=== PATIENT | male | born 1930 | race Caucasian/White ===

== ENCOUNTER 2017-04-23 10:23 | Inpatient (IN) | payer MEDICARE ==
[2017-04-23] MEDS ORDERED: methylPREDNISolone SOD SUCCI 125 MG/2 ML VIAL IV STA (10:28)
[2017-04-23] MEDS ORDERED: IPRATROPIUM-ALBUTEROL 3 ML NEB INHALATION STA ×2 (10:38→13:13)
--- NOTE | 2017-04-23 10:42 | ED ---
SOB HPI - General Stated Complaint: Chest Pain Time Seen by Provider: 04/23/17 10:23 Source: patient, EMS, RN notes reviewed Mode of arrival: EMS - History of Present Illness Initial Comments: This is a 86-year-old male who presents with complaints of shortness of breath or past 3 days he also has a cough of green phlegm he has had some intermittent fevers chills and sweats. EMS was called he was found have a respiratory rate of 20-30 breaths a minute 93% pulse ox on initial contact he did improve after oxygen. He also had EKG changes was suggested that an [place] per EMS. Patient does not have any chest pain however. He skin no prior history of heart disease. She has no other complaints at this time MD Complaint: shortness of breath, cough - Related Data Home Medications Medication Instructions Recorded Confirmed Aspirin 81 mg PO DAILY 04/23/17 04/23/17 Budesonide 0.5 mg IH RT-BID 04/23/17 04/23/17 Montelukast Sodium [Singulair] 10 mg PO HS 04/23/17 04/23/17 Vit C/E/Zn/Coppr/Lutein/Zeaxan 1 cap PO BID 04/23/17 04/23/17 [Preservision Areds 2 Softgel] Allergies Allergy/AdvReac Type Severity Reaction Status Date / Time No Known Allergies Allergy Unverified 04/23/17 11:23 Review of Systems ROS Statement: Those systems with pertinent positive or pertinent negative responses have been documented in the HPI. ROS Other: All systems not noted in ROS Statement are negative. General Exam - General Exam Comments Initial Comments: This is a well-developed well-nourished awake alert oriented times 3 male General appearance: alert, in no apparent distress Head exam: Present: atraumatic, normocephalic, normal inspection Eye exam: Present: normal appearance, PERRL, EOMI. Absent: scleral icterus, conjunctival injection, periorbital swelling ENT exam: Present: normal exam, mucous membranes moist Neck exam: Present: normal inspection. Absent: tenderness, meningismus, lymphadenopathy Respiratory exam: Present: respiratory distress, rhonchi, accessory muscle use, decreased breath sounds. Absent: wheezes, rales, stridor Cardiovascular Exam: Present: regular rate, normal rhythm, normal heart sounds. Absent: systolic murmur, diastolic murmur, rubs, gallop, clicks GI/Abdominal exam: Present: soft, normal bowel sounds. Absent: distended, tenderness, guarding, rebound, rigid Extremities exam: Present: normal inspection, full ROM, normal capillary refill. Absent: tenderness, pedal edema, joint swelling, calf tenderness Back exam: Present: normal inspection Neurological exam: Present: alert, oriented X3, CN II-XII intact Psychiatric exam: Present: normal affect, normal mood Skin exam: Present: warm, dry, intact, normal color. Absent: rash Course Vital Signs 04/23/17 04/23/17 04/23/17 10:43 10:45 10:48 Temperature 98.9 F Pulse Rate 81 98 Respiratory 18 20 Rate Blood Pressure 144/62 O2 Sat by Pulse 96 Oximetry 04/23/17 04/23/17 04/23/17 10:59 12:09 13:16 Temperature 98.5 F Pulse Rate 87 80 79 Respiratory 17 16 Rate Blood Pressure 116/61 O2 Sat by Pulse 98 Oximetry 04/23/17 04/23/17 13:24 15:02 Temperature Pulse Rate 79 83 Respiratory 16 18 Rate Blood Pressure 125/59 O2 Sat by Pulse 97 Oximetry - Reevaluation(s) Reevaluation #1: 04/23/17 15:10 Reevaluation patient reveals he still dyspneic. This is after treatment. Reevaluation #2: 04/23/17 15:10 CT chest was negative for evidence of PE does have evidence of pulmonary fibrosis infiltrate as not ruled out Medical Decision Making - Lab Data Result diagrams: 04/23/17 10:35 04/23/17 10:35 Lab Results 04/23/17 04/23/17 04/23/17 Range/Units 10:35 10:35 10:35 WBC 10.6 (3.8-10.6) k/uL RBC 3.99 L (4.30-5.90) m/uL Hgb 12.3 L (13.0-17.5) gm/dL Hct 37.6 L (39.0-53.0) % MCV 94.2 (80.0-100.0) fL MCH 30.8 (25.0-35.0) pg MCHC 32.7 (31.0-37.0) g/dL RDW 13.3 (11.5-15.5) % Plt Count 161 (150-450) k/uL Neutrophils % 69 % Lymphocytes % 21 % Monocytes % 7 % Eosinophils % 0 % Basophils % 0 % Neutrophils # 7.3 (1.3-7.7) k/uL Lymphocytes # 2.2 (1.0-4.8) k/uL Monocytes # 0.8 (0-1.0) k/uL Eosinophils # 0.0 (0-0.7) k/uL Basophils # 0.0 (0-0.2) k/uL PT (9.0-12.0) sec INR (<1.1) APTT (22.0-30.0) sec D-Dimer (<0.60) mg/L FEU Sodium 135 L (137-145) mmol/L Potassium 4.3 (3.5-5.1) mmol/L Chloride 101 (98-107) mmol/L Carbon Dioxide 26 (22-30) mmol/L Anion Gap 8 mmol/L BUN 27 H (9-20) mg/dL Creatinine 1.13 (0.66-1.25) mg/dL Est GFR (MDRD) Af Amer >60 (>60 ml/min/1.73 sqM) Est GFR (MDRD) Non-Af >60 (>60 ml/min/1.73 sqM) Glucose 92 (74-99) mg/dL Plasma Lactic Acid Ashvin (0.7-2.0) mmol/L Calcium 8.4 (8.4-10.2) mg/dL Magnesium 2.1 (1.6-2.3) mg/dL Total Bilirubin 1.5 H (0.2-1.3) mg/dL AST 15 L (17-59) U/L ALT 17 L (21-72) U/L Alkaline Phosphatase 118 (38-126) U/L Total Creatine Kinase 45 L (55-170) U/L CK-MB (CK-2) 0.5 (0.0-2.4) ng/mL CK-MB (CK-2) Rel Index 1.1 Troponin I 0.021 (0.000-0.034) ng/mL NT-Pro-B Natriuret Pep pg/mL Total Protein 6.2 L (6.3-8.2) g/dL Albumin 2.9 L (3.5-5.0) g/dL 04/23/17 04/23/17 04/23/17 Range/Units 10:35 10:35 10:35 WBC (3.8-10.6) k/uL RBC (4.30-5.90) m/uL Hgb (13.0-17.5) gm/dL Hct (39.0-53.0) % MCV (80.0-100.0) fL MCH (25.0-35.0) pg MCHC (31.0-37.0) g/dL RDW (11.5-15.5) % Plt Count (150-450) k/uL Neutrophils % % Lymphocytes % % Monocytes % % Eosinophils % % Basophils % % Neutrophils # (1.3-7.7) k/uL Lymphocytes # (1.0-4.8) k/uL Monocytes # (0-1.0) k/uL Eosinophils # (0-0.7) k/uL Basophils # (0-0.2) k/uL PT 13.4 H (9.0-12.0) sec INR 1.4 (<1.1) APTT 26.0 (22.0-30.0) sec D-Dimer 2.31 H (<0.60) mg/L FEU Sodium (137-145) mmol/L Potassium (3.5-5.1) mmol/L Chloride (98-107) mmol/L Carbon Dioxide (22-30) mmol/L Anion Gap mmol/L BUN (9-20) mg/dL Creatinine (0.66-1.25) mg/dL Est GFR (MDRD) Af Amer (>60 ml/min/1.73 sqM) Est GFR (MDRD) Non-Af (>60 ml/min/1.73 sqM) Glucose (74-99) mg/dL Plasma Lactic Acid Ashvin 1.3 (0.7-2.0) mmol/L Calcium (8.4-10.2) mg/dL Magnesium (1.6-2.3) mg/dL Total Bilirubin (0.2-1.3) mg/dL AST (17-59) U/L ALT (21-72) U/L Alkaline Phosphatase (38-126) U/L Total Creatine Kinase (55-170) U/L CK-MB (CK-2) (0.0-2.4) ng/mL CK-MB (CK-2) Rel Index Troponin I (0.000-0.034) ng/mL NT-Pro-B Natriuret Pep 2780 pg/mL Total Protein (6.3-8.2) g/dL Albumin (3.5-5.0) g/dL Critical Care Time Critical Care Time: Yes Critical Care Time: 33 minutes critical care time which includes initial monitoring EMS call and discussed with paramedics. History physical lab and x-rays multiple discussions with the patient family reevaluation the patient response to therapy. Discussion with the admitting physician orders documentation. Disposition Clinical Impression: Pulmonary fibrosis, Bronchospasm, Pneumonitis, Congestive heart failure Disposition: ADMITTED IP TO THIS [facility] Condition: Stable Referrals: Pabol Stephen MD [Primary Care Provider] - 1-2 days
[2017-04-23 11:08] LABS: ALT 17 U/L (21-72); AST 15 U/L (17-59); Alkaline Phosphatase 118 U/L (38-126); Anion Gap 8 mmol/L; Blood Urea Nitrogen 27 mg/dL (9-20); Calcium 8.4 mg/dL (8.4-10.2); Carbon Dioxide 26 mmol/L (22-30); Chloride 101 mmol/L (98-107); Glucose 92 mg/dL (74-99); Magnesium 2.1 mg/dL (1.6-2.3); Non-African American GFR(MDRD) >60 (>60 ml/min/1.73 sqM); Potassium 4.3 mmol/L (3.5-5.1); Sodium 135 mmol/L (137-145); Total Bilirubin 1.5 mg/dL (0.2-1.3); Total Protein 6.2 g/dL (6.3-8.2)
[2017-04-23 11:09] LABS: Basophils % (A) 0 %; CH 30.1; CHCM 32.2; Eosinophils % (A) 0 %; HCT 37.6 % (39.0-53.0); HDW 2.22; HGB 12.3 gm/dL (13.0-17.5); Luc # (Auto) 0.27; Luc % (Auto) 3; Lymphocytes # (A) 2.2 k/uL (1.0-4.8); Lymphocytes % (A) 21 %; MCH 30.8 pg (25.0-35.0); MCHC 32.7 g/dL (31.0-37.0); MCV 94.2 fL (80.0-100.0); Mean Platelet Volume 8.4; Monocytes # (A) 0.8 k/uL (0-1.0); Monocytes % (A) 7 %; Neutrophils # (A) 7.3 k/uL (1.3-7.7); Neutrophils % (A) 69 %; RBC 3.99 m/uL (4.30-5.90); RDW 13.3 % (11.5-15.5); WBC 10.6 k/uL (3.8-10.6); WBC (Perox) 9.62
[2017-04-23 11:16] LABS: INR 1.4 (<1.1); Prothrombin Time 13.4 sec (9.0-12.0)
[2017-04-23 11:29] LABS: Creatine Kinase MB 0.5 ng/mL (0.0-2.4); Troponin I 0.021 ng/mL (0.000-0.034)
--- NOTE | 2017-04-23 11:55 | XR ---
EXAMINATION TYPE: XR chest 2V DATE OF EXAM: 04/23/2017 11:22 AM COMPARISON: None HISTORY: 86-year-old male difficulty breathing, history of IPF and COPD TECHNIQUE: Frontal and lateral views FINDINGS: Heart is borderline enlarged. Leftward patient rotation alters the normal cardiomediastinal contours. Diffuse medium and coarse reticular opacities are seen throughout. Opacity is more confluent along t he peripheral right midlung. No priors available for comparison purposes. No obvious pleural effusion on the lateral view. IMPRESSION: 1. Extensive bilateral opacities appear predominantly coarse and interstitial interstitial. This like ly is in keeping with the patient's provided history of IPF. 2. However, opacity is more confluent at the peripheral right midlung and underlying infiltrate is no t excluded.
[2017-04-23] MEDS ORDERED: RX INFO: IV CONTRAST WAS GIVEN 1 EACH MISC MISCELLANE PRN (12:05)
--- NOTE | 2017-04-23 12:50 | CT ---
EXAMINATION TYPE: CT angio chest DATE OF EXAM: 04/23/2017 12:35 PM COMPARISON: Radiograph same day HISTORY: 86-year-old male with pain, evaluate for PE. TECHNIQUE: Contiguous axial scanning of the chest performed with IV Contrast, patient injected with 1 00 ml mL of Omnipaque 350. Coronal/sagittal MIP reconstructions performed. CT DLP: 188.90 mGycm Automated exposure control for dose reduction was used. FINDINGS: The heart is upper limits of normal in size without pericardial effusion. Coronary vessel calcificati ons are present and are a marker for coronary artery disease. Ascending aorta is ectatic at 3.7 cm with very direct takeoff of the left vertebral artery directly f rom the aortic arch There is enlargement of the main right and left pulmonary arteries at 2.8 cm each compatible with pul monary arterial hypertension. No evidence for pulmonary embolus. Enlarged 2.1 cm subcarinal lymph node. Additional enlarged right hilar lymph nodes measuring up to 1. 2 cm. There is coarse interstitial thickening with diffuse honeycombing, right greater than left with more confluent interstitial changes particularly along the posterior right midlung and right lower lobe. S ome additional more focal densities such as in the posterior left lower lobe axial image 89. Visualized upper abdomen shows no gross abnormality. Bones: Accentuated mid thoracic kyphosis. IMPRESSION: 1. PULMONARY ARTERIAL HYPERTENSION. NO EVIDENCE FOR PULMONARY EMBOLUS. 2. SEVERE DIFFUSE LUNG DISEASE COMPATIBLE WITH UNDERLYING IPF. CHANGES ARE ASYMMETRICALLY GREATER ON THE RIGHT WITH MORE CONFLUENT AREAS OF INTERSTITIAL CHANGE AND SOME MILDLY ENLARGED RIGHT HILAR LYMPH NODES. CLINICAL CORRELATION WILL BE NEEDED TO EXCLUDE ANY ACUTE SUPERIMPOSED INFECTIOUS INFILTRATES NO PRIORS ARE AVAILABLE FOR COMPARISON.
[2017-04-23] MEDS ORDERED: NITROGLYCERIN OINT 1 INCH/GM PACKET TOPICAL STA (15:29)
[2017-04-23] MEDS ORDERED: FUROSEMIDE 10 MG/ML 4 ML VIAL IV STA (15:30)
[2017-04-23] MEDS ORDERED: SODIUM CHLORIDE 0.9% 1,000 ML IV SCH (15:30)
[2017-04-23] MEDS: IPRATROPIUM-ALBUTEROL 3 ML NEB INHALATION SCH ×3 (16:19→19:55)
[2017-04-23] MEDS ORDERED: LEVOFLOXACIN 500 MG TAB PO SCH (18:00)
[2017-04-23] MEDS: methylPREDNISolone SOD SUCCI 125 MG/2 ML VIAL IV SCH ×2 (19:41→23:41)
[2017-04-23] MEDS ORDERED: IPRATROPIUM-ALBUTEROL 3 ML NEB INHALATION PRN (19:49)
[2017-04-23 21:01] LABS: Glucose,Whole Blood 125 mg/dL (75-99)
[2017-04-23] MEDS: MONTELUKAST 10 MG TAB PO SCH (23:41)
[2017-04-24 05:51] LABS: Glucose,Whole Blood 109 mg/dL (75-99)
[2017-04-24] MEDS: INSULIN LISPRO (humaLOG) 300 UNIT/3 ML VIAL SQ SCH ×4 (06:15→23:50)
[2017-04-24] MEDS: methylPREDNISolone SOD SUCCI 125 MG/2 ML VIAL IV SCH ×4 (08:32→23:50)
[2017-04-24] MEDS: VIT A,C & E-LUTEIN-MINERALS 1 EACH TAB PO SCH ×2 (08:33→21:52)
[2017-04-24] MEDS: ASPIRIN 81 MG CHEW PO SCH (08:33)
[2017-04-24] MEDS: BUDESONIDE 0.5 MG/2 ML NEBU INHALATION SCH ×2 (08:54→19:40)
[2017-04-24] MEDS: IPRATROPIUM-ALBUTEROL 3 ML NEB INHALATION SCH ×4 (08:54→19:40)
[2017-04-24 09:43] VITALS: BMI 18.5
--- NOTE | 2017-04-24 10:17 | P.CRDCN ---
<Julia Hugo E - Last Filed: 04/24/17 10:03> History of Present Illness Consult date: 04/24/17 Requesting physician: Betsey Diez Reason for Consult (text): Arrhythmia Chief complaint: Worsening shortness of breath and productive cough History of present illness: This is an 86-year-old gentleman with no prior documented history of hypertension, no diabetes, no hyperlipidemia, prior history of smoking, COPD, essential tremors, and pulmonary fibrosis. He presents to the hospital with symptoms of progressively worsening shortness of breath with associated persistent productive cough of green sputum. Patient states he felt very congested in his chest, and has been becoming more and more weak because of the persistent coughing. He also states that he has been experiencing chills at home but denies any overt fever. Blood pressure on arrival here 144/60 with a heart rate in the 90s, temperature 90.8 0.996% on 3 L of oxygen. Chest x-ray on admission revealed extensive bilateral open cities appearing predominantly coarse and interstitial. Likely in keeping with the patient's history of pulmonary fibrosis. There is an opaque sitting in the peripheral right midlung suggesting an infiltrate. CTA of the chest was performed which revealed pulmonary arterial hypertension with no evidence for pulmonary embolism. Severe diffuse lung disease compatible with pulmonary fibrosis, greater on the right with more confluent areas of interstitial change and some mildly enlarged right hilar lymph nodes. Possible infectious infiltrates. A blood cell count normal, hemoglobin 12.3, d-dimer 2.3, potassium 4.3, sodium 135, BUN 27 and creatinine 1.1. Magnesium 2.1, total bilirubin 1.5, AST 15, ALT 17, troponin 0.021. BNP level 2780. Patient was seen by Dr. Maldonado in the hospital in 2011 at which time a heart catheterization was performed which revealed normal coronary arteries. A etiology consultation was requested because of questionable arrhythmia on presentation here. EKG performed via EMS showed a normal sinus rhythm with an intraventricular block. EKG on arrival here shows normal sinus rhythm with nonspecific ST-T wave changes. No evidence of atrial fibrillation. At the time of my examination this morning, patient states his breathing is improving and he seems to be coughing less this morning. He was initiated on steroids in the emergency room, as well as antibiotics. We will discontinue the patient's Nitropaste as he denies having any chest discomfort. He was also given a one-time dose of IV Lasix in the emergency room. Past Medical History Past Medical History: COPD, GI Bleed, Hearing Disorder / Deafness, Osteoarthritis (OA) Additional Past Medical History / Comment(s): sinus, tremors, 1984-"bleeding ulcer,pulmonary fibrosis,home 02 2 liters n/c, mac degeneration, "heart skips a beat", shingle 2008 or 2009 History of Any Multi-Drug Resistant Organisms: None Reported Past Surgical History: Appendectomy, Orthopedic Surgery, Tonsillectomy Additional Past Surgical History / Comment(s): egd/colonosocpy, lt knee sx, gregg cataracts-lens implants Past Anesthesia/Blood Transfusion Reactions: No Reported Reaction Additional Past Anesthesia/Blood Transfusion Reaction / Comment(s): blood transfusion in past- no reaction Past Psychological History: No Psychological Hx Reported Additional Psychological History / Comment(s): pt denies any depression or any thoughts of wanting to harm self. pt and his recently moved to [facility].( has dementia). no pets. has home 02 /concentrator, nebulizer, walker. pt served in the [employer] in [employer]. 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 Smoking Status: Former smoker Past Alcohol Use History: Rare Additional Past Alcohol Use History / Comment(s): started smoking at age 14 smoked 3 ppd, quit 1969 Past Drug Use History: None Reported - Past Family History Father Family Medical History: Coronary Artery Disease (CAD) Additional Family Medical History / Comment(s): aaa Mother Family Medical History: Congestive Heart Failure (CHF) Sister(s) Additional Family Medical History / Comment(s): depression Daughter(s) Additional Family Medical History / Comment(s): committed suicide Medications and Allergies Home Medications Medication Instructions Recorded Confirmed Type Aspirin 81 mg PO DAILY 04/23/17 04/23/17 History Budesonide 0.5 mg IH RT-BID 04/23/17 04/23/17 History Montelukast Sodium [Singulair] 10 mg PO HS 04/23/17 04/23/17 History Vit C/E/Zn/Coppr/Lutein/Zeaxan 1 cap PO BID 04/23/17 04/23/17 History [Preservision Areds 2 Softgel] Allergies Allergy/AdvReac Type Severity Reaction Status Date / Time No Known Allergies Allergy Unverified 04/23/17 11:23 Physical Exam Vitals: Vital Signs Temp Pulse Pulse Resp BP BP Pulse Ox 04/24/17 09:11 88 04/24/17 09:03 86 04/24/17 09:02 86 04/24/17 08:54 82 100 04/24/17 08:00 82 18 110/61 98 04/24/17 04:00 81 18 118/57 95 04/24/17 00:00 68 18 112/61 97 04/23/17 20:00 73 19 110/60 98 04/23/17 19:55 74 14 04/23/17 19:45 74 16 94 L 04/23/17 17:34 96.7 F L 87 20 128/61 98 04/23/17 16:36 83 18 125/59 97 04/23/17 15:02 83 18 125/59 97 04/23/17 13:24 79 16 04/23/17 13:16 79 16 04/23/17 12:09 98.5 F 80 17 116/61 98 04/23/17 10:59 87 04/23/17 10:48 20 04/23/17 10:45 98.9 F 98 18 144/62 96 04/23/17 10:43 81 Intake and Output 04/23/17 04/24/17 04/24/17 22:59 06:59 14:59 Intake Total 240 240 120 Output Total 500 Balance -260 240 120 Intake: IV 240 Sodium Chloride 0.9% 1, 240 000 ml @ 20 mls/hr IV . Q24H [facility] Rx#:[id number] Oral 240 120 Output: Urine 500 Other: # Voids 1 Weight 62 kg 62 kg Patient Weight 04/25/17 06:59 Weight 62 kg PHYSICAL EXAMINATION: HEENT: [Head is atraumatic, normocephalic. Pupils equal, round. Neck is supple. There is no elevated jugular venous pressure.] HEART EXAMINATION: [Heart S1, S2 normal. No murmur or gallop heard.] CHEST EXAMINATION: Lungs reveal coarse fibrotic rales throughout. ABDOMEN: [ Soft, nontender. Bowel sounds are heard. No organomegaly noted]. EXTREMITIES:[ 2+ peripheral pulses with no evidence of peripheral edema and no calf tenderness noted]. NEUROLOGIC [patient is awake, alert and oriented -3.] . Results 04/23/17 10:35 04/23/17 10:35 Cardiac Enzymes 04/23/17 04/23/17 Range/Units 10:35 10:35 AST 15 L (17-59) U/L CK-MB (CK-2) 0.5 (0.0-2.4) ng/mL Troponin I 0.021 (0.000-0.034) ng/mL Coagulation 04/23/17 Range/Units 10:35 PT 13.4 H (9.0-12.0) sec APTT 26.0 (22.0-30.0) sec CBC 04/23/17 Range/Units 10:35 WBC 10.6 (3.8-10.6) k/uL RBC 3.99 L (4.30-5.90) m/uL Hgb 12.3 L (13.0-17.5) gm/dL Hct 37.6 L (39.0-53.0) % Plt Count 161 (150-450) k/uL Comprehensive Metabolic Panel 04/23/17 Range/Units 10:35 Sodium 135 L (137-145) mmol/L Potassium 4.3 (3.5-5.1) mmol/L Chloride 101 (98-107) mmol/L Carbon Dioxide 26 (22-30) mmol/L BUN 27 H (9-20) mg/dL Creatinine 1.13 (0.66-1.25) mg/dL Glucose 92 (74-99) mg/dL Calcium 8.4 (8.4-10.2) mg/dL AST 15 L (17-59) U/L ALT 17 L (21-72) U/L Alkaline Phosphatase 118 (38-126) U/L Total Protein 6.2 L (6.3-8.2) g/dL Albumin 2.9 L (3.5-5.0) g/dL Current Medications Generic Name Dose Route Start Last Admin Trade Name Freq PRN Reason Stop Dose Admin Albuterol/Ipratropium 3 ml 04/23/17 20:00 04/24/17 08:54 Duoneb 0.5 Mg-3 Mg/3 Ml Soln INHALATION 3 ml RT-QID [facility] Administration Albuterol/Ipratropium 3 ml 04/23/17 19:49 Duoneb 0.5 Mg-3 Mg/3 Ml Soln INHALATION RT-Q2H PRN Shortness Of Breath Or Wheezing Aspirin 81 mg 04/24/17 09:00 04/24/17 08:33 Aspirin PO 81 mg DAILY [facility] Administration Budesonide 0.5 mg 04/24/17 08:00 04/24/17 08:54 Pulmicort INHALATION 0.5 mg RT-BID [facility] Administration Sodium Chloride 1,000 mls @ 20 mls/hr 04/23/17 15:30 04/23/17 23:41 Saline 0.9% IV 20 mls/hr .Q24H [facility] Administration Insulin Human Lispro 0 unit 04/24/17 07:30 04/24/17 06:15 Humalog SQ Not Given ACHS [facility] Protocol Levofloxacin 500 mg 04/23/17 18:00 04/23/17 16:26 Levaquin PO 04/30/17 18:01 500 mg Q24H [facility] Administration Methylprednisolone Sodium Succinate 60 mg 04/23/17 18:00 04/24/17 08:32 Solu-Medrol IV 60 mg Q6HR [facility] Administration Miscellaneous Information 1 each 04/23/17 12:05 Rx Info: Iv Contrast Was Given MISCELLANE 04/25/17 12:05 DAILY PRN Per Protocol Montelukast Sodium 10 mg 04/23/17 21:00 04/23/17 23:41 Singulair PO 10 mg HS [facility] Administration Multivitamins/Minerals 1 each 04/24/17 09:00 04/24/17 08:33 Ivite PO 1 each BID [facility] Administration Intake and Output 04/23/17 04/24/17 04/24/17 22:59 06:59 14:59 Intake Total 240 240 120 Output Total 500 Balance -260 240 120 Intake: IV 240 Sodium Chloride 0.9% 1, 240 000 ml @ 20 mls/hr IV . Q24H [facility] Rx#:[id number] Oral 240 120 Output: Urine 500 Other: # Voids 1 Weight 62 kg 62 kg Patient Weight 04/25/17 06:59 Weight 62 kg 04/23/17 10:35 04/23/17 10:35 EKG Interpretations (text) EKG shows normal sinus rhythm with bundle branch block pattern and nonspecific ST-T wave changes. Assessment and Plan Plan: Assessment and plan #1 in terms of progressively worsening shortness of breath with associated productive cough of green sputum as well as chills. Suggestion of possible pneumonia. Patient is currently on IV steroids and antibiotics. #2 questionable arrhythmia, no evidence of atrial fibrillation, EKG shows normal sinus rhythm with a bundle branch block pattern and nonspecific ST-T wave changes #3 COPD #4 pulmonary fibrosis #5 cardiac risk factors negative for hypertension, no diabetes, no hyperlipidemia, patient used to smoke, he quit in 1969, he does have a family history of premature coronary artery disease in his brother. Plan Will obtain an echocardiogram with Doppler study to assess the patient's LV function. There is no evidence of any atrial fibrillation on the monitor. Continue other medications. Patient is stable from a cardiac perspective. DNP note has been reviewed, I agree with a documented findings and plan of care. Patient was seen and examined. <Hammad Coffman - Last Filed: 04/25/17 10:17> Physical Exam Vitals: Vital Signs Temp Pulse Pulse Resp BP Pulse Ox 04/25/17 09:00 128 H 04/25/17 08:47 130 H 95 04/25/17 08:00 96.2 F L 130 H 98/54 95 04/25/17 04:00 98.0 F 139 H 18 100/56 94 L 04/25/17 00:00 96.9 F L 130 H 20 97/62 97 04/24/17 20:00 97.0 F L 130 H 20 85/61 96 04/24/17 19:50 88 04/24/17 19:40 84 04/24/17 16:41 88 04/24/17 16:31 86 04/24/17 16:00 97.6 F 78 16 119/60 96 04/24/17 12:27 88 04/24/17 12:15 86 04/24/17 12:00 104 H 16 118/65 Intake and Output 04/24/17 04/25/17 04/25/17 22:59 06:59 14:59 Intake Total 127.14 437.208 163.717 Balance 127.14 437.208 163.717 Intake: IV 127.14 339 Diltiazem 125 mg In 22.5 60 Sodium Chloride 0.9% 100 ml @ 7.5 MG/HR 7.5 mls/hr IV .[id number] [facility] Rx#: [id number] Heparin Sodium,Porcine/ 44.64 119 D5w Pmx 25,000 unit In Dextrose/Water 1 500ml. bag @ 12 UNITS/KG/HR 14. 88 mls/hr IV .Q24H [facility] Rx #:[id number] Sodium Chloride 0.9% 1, 60 160 000 ml @ 20 mls/hr IV . Q24H [facility] Rx#:[id number] Intake, IV Titration 98.208 163.717 Amount Diltiazem 125 mg In 61.417 Sodium Chloride 0.9% 100 ml @ 10 MG/HR 10 mls/hr IV .[id number] [facility] Rx#: [id number] Heparin Sodium,Porcine/ 98.208 102.3 D5w Pmx 25,000 unit In Dextrose/Water 1 500ml. bag @ 12 UNITS/KG/HR 14. 88 mls/hr IV .Q24H [facility] Rx #:[id number] Oral 0 Other: Voiding Method Urinal Urinal # Voids 1 1 Weight 69.5 kg Results 04/25/17 07:36 04/25/17 07:36 Cardiac Enzymes 04/24/17 04/25/17 04/25/17 Range/Units 20:03 01:30 07:36 Troponin I <0.012 0.044 H* 0.099 H* (0.000-0.034) ng/mL Coagulation 04/24/17 04/25/17 Range/Units 20:03 01:30 PT 11.5 (9.0-12.0) sec APTT 24.7 29.0 (22.0-30.0) sec CBC 04/24/17 04/25/17 Range/Units 20:03 07:36 WBC 13.4 H 14.1 H (3.8-10.6) k/uL RBC 4.25 L 4.50 (4.30-5.90) m/uL Hgb 13.2 13.4 (13.0-17.5) gm/dL Hct 41.1 43.9 (39.0-53.0) % Plt Count 218 246 (150-450) k/uL Comprehensive Metabolic Panel 04/25/17 Range/Units 07:36 Sodium 133 L (137-145) mmol/L Potassium 3.8 (3.5-5.1) mmol/L Chloride 97 L (98-107) mmol/L Carbon Dioxide 25 (22-30) mmol/L BUN 41 H (9-20) mg/dL Creatinine 1.14 (0.66-1.25) mg/dL Glucose 115 H (74-99) mg/dL Calcium 8.7 (8.4-10.2) mg/dL Current Medications Generic Name Dose Route Start Last Admin Trade Name Freq PRN Reason Stop Dose Admin Albuterol/Ipratropium 3 ml 04/23/17 20:00 04/25/17 08:47 Duoneb 0.5 Mg-3 Mg/3 Ml Soln INHALATION 3 ml RT-QID [facility] Administration Albuterol/Ipratropium 3 ml 04/23/17 19:49 Duoneb 0.5 Mg-3 Mg/3 Ml Soln INHALATION RT-Q2H PRN Shortness Of Breath Or Wheezing Aspirin 81 mg 04/24/17 09:00 04/25/17 08:50 Aspirin PO 81 mg DAILY [facility] Administration Budesonide 0.5 mg 04/24/17 08:00 04/25/17 08:47 Pulmicort INHALATION 0.5 mg RT-BID [facility] Administration Guaifenesin 1,200 mg 04/24/17 21:00 04/25/17 08:51 Mucinex PO 1,200 mg Q12HR [facility] Administration Heparin Sodium (Porcine) 0 unit 04/24/17 19:48 Heparin IV PER PROTOCOL PRN Low PTT Protocol Azithromycin 500 mg/ Sodium 250 mls @ 125 mls/hr 04/24/17 16:15 04/24/17 17: 16 Chloride IVPB 125 mls/hr DAILY [facility] Administration Ceftriaxone Sodium 1,000 mg/ 50 mls @ 100 mls/hr 04/24/17 16:15 04/25/17 08: 54 Sodium Chloride IVPB 100 mls/hr Q24HR [facility] Administration Diltiazem HCl 125 mg/ Sodium 125 mls @ 10 mls/hr 04/24/17 20:00 04/25/17 08: 54 Chloride IV 10 mg/hr .[id number] [facility] 10 mls/hr 10 MG/HR Administration Heparin Sodium/Dextrose 25,000 500 mls @ 14.88 mls/hr 04/24/17 20:00 08:55 unit/ IV Solution IV 18 units/kg/hr .Q24H [facility] 22.32 mls/hr Protocol Titration 12 UNITS/KG/HR Insulin Human Lispro 0 unit 04/24/17 07:30 04/25/17 06:30 Humalog SQ Not Given ACHS [facility] Protocol Methylprednisolone Sodium Succinate 60 mg 04/24/17 13:00 04/25/17 06:30 Solu-Medrol IV 60 mg Q6HR [facility] Administration Miscellaneous Information 1 each 04/23/17 12:05 Rx Info: Iv Contrast Was Given MISCELLANE 04/25/17 12:05 DAILY PRN Per Protocol Montelukast Sodium 10 mg 04/23/17 21:00 04/24/17 21:52 Singulair PO 10 mg HS [facility] Administration Multivitamins/Minerals 1 each 04/24/17 09:00 04/25/17 08:51 Ivite PO 1 each BID [facility] Administration Pantoprazole Sodium 40 mg 04/25/17 07:30 04/25/17 06:30 Protonix PO 40 mg [id number] [facility] Administration Intake and Output 04/24/17 04/25/17 04/25/17 22:59 06:59 14:59 Intake Total 127.14 437.208 163.717 Balance 127.14 437.208 163.717 Intake: IV 127.14 339 Diltiazem 125 mg In 22.5 60 Sodium Chloride 0.9% 100 ml @ 7.5 MG/HR 7.5 mls/hr IV .[id number] [facility] Rx#: [id number] Heparin Sodium,Porcine/ 44.64 119 D5w Pmx 25,000 unit In Dextrose/Water 1 500ml. bag @ 12 UNITS/KG/HR 14. 88 mls/hr IV .Q24H [facility] Rx #:[id number] Sodium Chloride 0.9% 1, 60 160 000 ml @ 20 mls/hr IV . Q24H [facility] Rx#:[id number] Intake, IV Titration 98.208 163.717 Amount Diltiazem 125 mg In 61.417 Sodium Chloride 0.9% 100 ml @ 10 MG/HR 10 mls/hr IV .[id number] [facility] Rx#: [id number] Heparin Sodium,Porcine/ 98.208 102.3 D5w Pmx 25,000 unit In Dextrose/Water 1 500ml. bag @ 12 UNITS/KG/HR 14. 88 mls/hr IV .Q24H [facility] Rx #:[id number] Oral 0 Other: Voiding Method Urinal Urinal # Voids 1 1 Weight 69.5 kg 04/25/17 07:36 04/25/17 07:36
[2017-04-24 11:32] LABS: Glucose,Whole Blood 178 mg/dL (75-99)
[2017-04-24 11:45] LABS: Hemoglobin A1C 5.4 % (4.2-6.1)
--- NOTE | 2017-04-24 14:31 | P.CNPUL ---
History of Present Illness Consult date: 04/24/17 Reason for consult: dyspnea, cough, pulmonary fibrosis Chief complaint: Shortness of breath History of present illness: This is an 86 year old male who presented to the emergency department complaining of shortness of breath for the last 3-4 days. The patient states he was coughing up green phlegm at home and had chills. He denies fevers. He does follow with Dr. ABELINO Lockwood in the office. He states he has been us ing his nebulizer: Pulmicort BID, Albuterol QID. She also takes Singulair. The patient has a history of IPF. He is not sure if he has never taken medication for her IPF in the past. He has been on oxygen at home at 2 L nasal cannula at baseline. He is a former smoker he used to smoke 3 packs per day for 30 years. He states he quit in 1969. On admission the patient was found to have severe pulmonary fibrosis and possible acute pneumonia on computed tomography scan. Review of Systems All systems: negative Past Medical History Past Medical History: COPD, GI Bleed, Hearing Disorder / Deafness, Osteoarthritis (OA) Additional Past Medical History / Comment(s): sinus, tremors, 1984-"bleeding ulcer,pulmonary fibrosis,home 02 2 liters n/c, mac degeneration, "heart skips a beat", shingle 2008 or 2009 History of Any Multi-Drug Resistant Organisms: None Reported Past Surgical History: Appendectomy, Orthopedic Surgery, Tonsillectomy Additional Past Surgical History / Comment(s): egd/colonosocpy, lt knee sx, gregg cataracts-lens implants Past Anesthesia/Blood Transfusion Reactions: No Reported Reaction Additional Past Anesthesia/Blood Transfusion Reaction / Comment(s): blood transfusion in past- no reaction Past Psychological History: No Psychological Hx Reported Additional Psychological History / Comment(s): pt denies any depression or any thoughts of wanting to harm self. pt and his recently moved to [facility].( has dementia). no pets. has home 02 /concentrator, nebulizer, walker. pt served in the [email or web address] in [employer]. 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 Smoking Status: Former smoker Past Alcohol Use History: Rare Additional Past Alcohol Use History / Comment(s): started smoking at age 14 smoked 3 ppd, quit 1969 Past Drug Use History: None Reported - Past Family History Father Family Medical History: Coronary Artery Disease (CAD) Additional Family Medical History / Comment(s): aaa Mother Family Medical History: Congestive Heart Failure (CHF) Sister(s) Additional Family Medical History / Comment(s): depression Daughter(s) Additional Family Medical History / Comment(s): committed suicide Medications and Allergies Home Medications Medication Instructions Recorded Confirmed Type Aspirin 81 mg PO DAILY 04/23/17 04/23/17 History Budesonide 0.5 mg IH RT-BID 04/23/17 04/23/17 History Montelukast Sodium [Singulair] 10 mg PO HS 04/23/17 04/23/17 History Vit C/E/Zn/Coppr/Lutein/Zeaxan 1 cap PO BID 04/23/17 04/23/17 History [Preservision Areds 2 Softgel] Allergies Allergy/AdvReac Type Severity Reaction Status Date / Time No Known Allergies Allergy Unverified 04/23/17 11:23 Physical Exam Osteopathic Statement: *. No significant issues noted on an osteopathic structural exam other than those noted in the History and Physical/Consult. Vitals: Vital Signs Temp Pulse Pulse Resp BP BP Pulse Ox 04/24/17 12:27 88 04/24/17 12:15 86 04/24/17 09:11 88 04/24/17 09:03 86 04/24/17 09:02 86 04/24/17 08:54 82 100 04/24/17 08:00 82 18 110/61 98 04/24/17 04:00 81 18 118/57 95 04/24/17 00:00 68 18 112/61 97 04/23/17 20:00 73 19 110/60 98 04/23/17 19:55 74 14 04/23/17 19:45 74 16 94 L 04/23/17 17:34 96.7 F L 87 20 128/61 98 04/23/17 16:36 83 18 125/59 97 04/23/17 15:02 83 18 125/59 97 Intake and Output 04/23/17 04/24/17 04/24/17 22:59 06:59 14:59 Intake Total 240 240 360 Output Total 500 Balance -260 240 360 Intake: IV 240 Sodium Chloride 0.9% 1, 240 000 ml @ 20 mls/hr IV . Q24H [facility] Rx#:[id number] Oral 240 360 Output: Urine 500 Other: # Voids 1 Weight 62 kg 62 kg Patient Weight 04/25/17 06:59 Weight 62 kg Gen.: Patient is alert and oriented 3, no acute distress Cardiovascular: Regular rate and rhythm, S1/S2 Lungs: Scattered crackles bilaterally Abdomen: Soft nontender nondistended positive bowel sounds Extremities: No edema Results - Laboratory Findings CBC and BMP: 04/23/17 10:35 04/23/17 10:35 PT/INR, D-dimer PT 13.4 sec (9.0-12.0) H 04/23/17 10:35 INR 1.4 (<1.1) 04/23/17 10:35 D-Dimer 2.31 mg/L FEU (<0.60) H 04/23/17 10:35 Abnormal lab findings: Abnormal Labs 04/23/17 04/23/17 04/23/17 10:35 10:35 10:35 RBC 3.99 L Hgb 12.3 L Hct 37.6 L PT D-Dimer Sodium 135 L BUN 27 H POC Glucose (mg/dL) Total Bilirubin 1.5 H AST 15 L ALT 17 L Total Creatine Kinase 45 L Total Protein 6.2 L Albumin 2.9 L 04/23/17 04/23/17 04/24/17 10:35 21:00 05:49 RBC Hgb Hct PT 13.4 H D-Dimer 2.31 H Sodium BUN POC Glucose (mg/dL) 125 H 109 H Total Bilirubin AST ALT Total Creatine Kinase Total Protein Albumin 04/24/17 11:31 RBC Hgb Hct PT D-Dimer Sodium BUN POC Glucose (mg/dL) 178 H Total Bilirubin AST ALT Total Creatine Kinase Total Protein Albumin - Diagnostic Findings Chest x-ray: report reviewed, image reviewed CT scan - chest: report reviewed, image reviewed Assessment and Plan Plan: Acute on chronic hypoxic respiratory failure Acute exacerbation of COPD Idiopathic pulmonary fibrosis Community acquired pneumonia History of tobacco abuse Anemia Probable pulmonary hypertension Mild protein calorie malnutrition Pulmonary cachexia Enlarged hilar lymph nodes Essential tremors O2 to maintain saturation greater than or equal to 88% IV steroid taper Bronchodilators Pulmicort Check echocardiogram Sputum culture Patient follows with Dr. ABELINO Lockwood in the office Continue Singulair Start Mucinex Physical therapy GI and DVT prophylaxis Incentive spirometry and pulmonary hygiene Thank you for this consultation we will continue to follow along
--- NOTE | 2017-04-24 15:48 | P.HPIM ---
History of Present Illness H&P Date: 04/24/17 Chief Complaint: Shortness of breath wheezing weakness This is a pleasant 86-year-old old gentleman patient of Dr. Latrell Lockwood and Dr Stephen, he has underlying history of pulmonary fibrosis, hypertension, COPD, decreased hearing, and also arthritis, he has been having problems for several years now for the pulmonary fibrosis and was recently placed on oxygen by Dr Marley Lockwood, at 2 L nasal cannula. Patient now complains of worsening cough, weakness, purulent productive sputum of yellowish green sputum, no fever no chills, patient has chronic leg edema right side, no history of PE or DVT in the past. Patient denies any recent falls however weakness continues to progress, and also has lost approximately 16 pounds since May 2017. Patient also has diminished appetite. In the emergency room. A CAT scan of the chest that shows pulmonary arterial hypertension, interstitial thickening with diffuse honeycombing, right greater than left, more conclusive and interstitial change particularly along the left posterior right lung and right lower lobe, and focal densities in the posterior left lower lobe, enlarged lymph node up to 1.2 right side, 2.1 cm subcarinal lymph node, no evidence of pulmonary emboli Review of Systems Constitutional: Reports as per HPI, Reports anorexia, Reports daytime sleepiness , Reports lethargy, Reports weight loss, Denies chills, Denies chronic headaches , Denies chronic pain, Denies fatigue, Denies fever, Denies malaise, Denies night sweats, Denies poor appetite, Denies sweats, Denies weakness, Denies weight gain Ears, nose, mouth and throat: Reports as per HPI, Denies ant. neck pain, Denies bleeding gums, Denies dental pain, Denies dysphagia, Denies epistaxis, Denies headache, Denies hoarseness, Denies mouth pain, Denies nasal congestion, Denies nasal discharge, Denies neck fullness/pressure, Denies neck lump, Denies nose pain, Denies odynophagia, Denies post-nasal drip, Denies sinus pain, Denies sinus pressure, Denies swelling in mouth, Denies swelling in throat, Denies sore throat, Denies vertigo, Denies voice changes Cardiovascular: Reports as per HPI, Denies chest pain, Denies claudication, Denies decreased exercise tolerance, Denies dyspnea on exertion, Denies edema, Denies high blood pressure, Denies irregular heart beat, Denies leg edema, Denies lightheadedness, Denies orthopnea, Denies palpitations, Denies paroxysmal nocturnal dyspnea, Denies phlebitis, Denies rapid heart beat, Denies shortness of breath, Denies syncope Respiratory: Reports as per HPI, Reports cough with sputum, Reports dyspnea, Reports home oxygen, Reports wheezing, Denies congestion, Denies cough, Denies excessive sputum, Denies hemoptysis, Denies pain, Denies pain on inspiration, Denies pleurisy, Denies respiratory infections, Denies sleep apnea, Denies snoring Gastrointestinal: Reports as per HPI, Denies abdominal pain, Denies belching, Denies bloating, Denies BRBPR, Denies change in bowel habits, Denies coffee ground emesis, Denies constipation, Denies diarrhea, Denies dyspepsia, Denies early satiety, Denies excessive gas, Denies heartburn, Denies hematemesis, Denies hematochezia, Denies indigestion, Denies jaundice, Denies lactose intolerance, Denies loss of appetite, Denies melena, Denies nausea, Denies vomiting Genitourinary: Reports as per HPI, Denies decreased libido, Denies difficulties fathering child, Denies discharge, Denies dysuria, Denies erectile dysfunction, Denies flank pain, Denies genital pain, Denies genital sores, Denies hematuria, Denies impotence, Denies incontinence, Denies kidney stones, Denies nocturia, Denies polyuria, Denies testicular lump, Denies testicular pain, Denies urinary frequency, Denies urinary hesitancy, Denies urinary retention Musculoskeletal: Reports as per HPI, Reports gait dysfunction, Reports limitation of motion, Denies arm numbness/tingling, Denies atrophy, Denies fractures, Denies frequent falls, Denies hot joints, Denies leg numbness/ tingling, Denies loss of height, Denies low back pain, Denies morning stiffness , Denies muscle cramps, Denies muscle weakness, Denies myalgias, Denies neck pain, Denies neck stiffness, Denies prior amputations, Denies redness of joints , Denies shooting arm pain, Denies shooting leg pain Integumentary: Reports as per HPI, Denies acne, Denies boils, Denies brittle nails, Denies change in hair/nails, Denies color changes, Denies darkening of skin, Denies depigmentation, Denies dryness, Denies foot/leg ulcers, Denies growths, Denies hirsutism, Denies lesions, Denies onychomycosis, Denies pruritus , Denies rash, Denies sores, Denies striae, Denies unusual bruising, Denies wounds Neurological: Reports as per HPI, Denies aphasia, Denies ataxia, Denies balance difficulties, Denies burning pain, Denies change in mentation, Denies change in smell/taste, Denies change in speech, Denies confusion, Denies convulsions, Denies double vision, Denies gait dysfunction, Denies head injury, Denies headaches, Denies hearing difficulties, Denies lack of coordination, Denies loss of vision, Denies memory loss, Denies migraines, Denies motor disturbance, Denies numbness, Denies paralysis, Denies paresthesias, Denies seizures, Denies sensory deficit, Denies spasticity, Denies syncope, Denies tic, Denies tingling , Denies transient paralysis, Denies tremors, Denies vertigo, Denies weakness, Denies visual changes Psychiatric: Reports as per HPI, Denies anhedonia, Denies anxiety, Denies anxiety attacks, Denies change in appetite, Denies change in libido, Denies change in sleep habits, Denies confusion, Denies depression, Denies difficulty concentrating, Denies disorientation, Denies hallucinations, Denies hopelessness , Denies hypersomnia, Denies insomnia, Denies irritability, Denies memory loss, Denies mood swings, Denies paranoia, Denies sadness/tearfulness, Denies sleep disturbances, Denies suicidal ideation Endocrine: Reports as per HPI, Denies cold intolerance, Denies deepening of the voice, Denies excessive sweating, Denies excessive thirst, Denies fatigue, Denies flushing, Denies heat intolerance, Denies high blood sugars, Denies increase in ring/shoe/hat size, Denies low blood sugars, Denies nocturia, Denies palpitations, Denies polydipsia, Denies polyphagia, Denies polyuria, Denies proptosis, Denies recent glucocorticoid use, Denies thyroid mass, Denies weight change Past Medical History Past Medical History: COPD, GI Bleed, Hearing Disorder / Deafness, Osteoarthritis (OA) Additional Past Medical History / Comment(s): sinus, tremors, 1984-"bleeding ulcer,pulmonary fibrosis,home 02 2 liters n/c, mac degeneration, "heart skips a beat", shingle 2009 or 2009 History of Any Multi-Drug Resistant Organisms: None Reported Past Surgical History: Appendectomy, Orthopedic Surgery, Tonsillectomy Additional Past Surgical History / Comment(s): egd/colonosocpy, lt knee sx, gregg cataracts-lens implants Past Anesthesia/Blood Transfusion Reactions: No Reported Reaction Additional Past Anesthesia/Blood Transfusion Reaction / Comment(s): blood transfusion in past- no reaction Past Psychological History: No Psychological Hx Reported Additional Psychological History / Comment(s): pt denies any depression or any thoughts of wanting to harm self. pt and his recently moved to [facility].( has dementia). no pets. has home 02 /concentrator, nebulizer, walker. pt served in [employer] in [place]. 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 Smoking Status: Former smoker Past Alcohol Use History: Rare Additional Past Alcohol Use History / Comment(s): started smoking at age 14 smoked 3 ppd, quit 1969 Past Drug Use History: None Reported - Past Family History Father Family Medical History: Coronary Artery Disease (CAD) Additional Family Medical History / Comment(s): aaa Mother Family Medical History: Congestive Heart Failure (CHF) Sister(s) Additional Family Medical History / Comment(s): depression Daughter(s) Additional Family Medical History / Comment(s): committed suicide Medications and Allergies Home Medications Medication Instructions Recorded Confirmed Type Aspirin 81 mg PO DAILY 04/23/17 04/23/17 History Budesonide 0.5 mg IH RT-BID 04/23/17 04/23/17 History Montelukast Sodium [Singulair] 10 mg PO HS 04/23/17 04/23/17 History Vit C/E/Zn/Coppr/Lutein/Zeaxan 1 cap PO BID 04/23/17 04/23/17 History [Preservision Areds 2 Softgel] Allergies Allergy/AdvReac Type Severity Reaction Status Date / Time No Known Allergies Allergy Unverified 04/23/17 11:23 Physical Exam Vitals: Vital Signs Temp Pulse Pulse Resp BP BP Pulse Ox 04/24/17 09:11 88 04/24/17 09:03 86 04/24/17 09:02 86 04/24/17 08:54 82 100 04/24/17 08:00 82 18 110/61 98 04/24/17 04:00 81 18 118/57 95 04/24/17 00:00 68 18 112/61 97 04/23/17 20:00 73 19 110/60 98 04/23/17 19:55 74 14 04/23/17 19:45 74 16 94 L 04/23/17 17:34 96.7 F L 87 20 128/61 98 04/23/17 16:36 83 18 125/59 97 04/23/17 15:02 83 18 125/59 97 04/23/17 13:24 79 16 04/23/17 13:16 79 16 04/23/17 12:09 98.5 F 80 17 116/61 98 Intake and Output 04/23/17 04/24/17 04/24/17 22:59 06:59 14:59 Intake Total 240 240 120 Output Total 500 Balance -260 240 120 Intake: IV 240 Sodium Chloride 0.9% 1, 240 000 ml @ 20 mls/hr IV . Q24H [facility] Rx#:[id number] Oral 240 120 Output: Urine 500 Other: # Voids 1 Weight 62 kg 62 kg Patient Weight 04/25/17 06:59 Weight 62 kg - Constitutional General appearance: cooperative, no acute distress - EENT Eyes: anicteric sclerae, EOMI, dentition normal, normal appearance ENT: hearing grossly normal, NA/AT, normal oropharynx - Neck Neck: no lymphadenopathy, normal ROM, no other, no rigidity, no stridor, no thyromegaly - Respiratory Respiratory: bilateral: CTA, negative: diminished, dullness, rales, rhonchi, wheezing - Cardiovascular Rhythm: regular Heart sounds: normal: S1, S2 Abnormal Heart Sounds: no systolic murmur, no diastolic murmur, no rub, no S3 Gallop, no S4 Gallop, no click, no other - Gastrointestinal General gastrointestinal: soft - Integumentary Integumentary: normal, normal turgor - Neurologic Neurologic: CNII-XII intact - Musculoskeletal Musculoskeletal: gait normal, strength equal bilaterally - Psychiatric Psychiatric: A&O x's 3, appropriate affect, intact judgment & insight Results CBC & Chem 7: 04/23/17 10:35 04/23/17 10:35 Labs: Abnormal Lab Results - Last 24 Hours (Table) 04/23/17 04/23/17 04/24/17 Range/Units 10:35 21:00 05:49 POC Glucose (mg/dL) 125 H 109 H (75-99) mg/dL Total Creatine Kinase 45 L (55-170) U/L Laboratory Results WBC 10.6 k/uL (3.8-10.6) 04/23/17 10:35 RBC 3.99 m/uL (4.30-5.90) L 04/23/17 10:35 Hgb 12.3 gm/dL (13.0-17.5) L 04/23/17 10:35 Hct 37.6 % (39.0-53.0) L 04/23/17 10:35 MCV 94.2 fL (80.0-100.0) 04/23/17 10:35 MCH 30.8 pg (25.0-35.0) 04/23/17 10:35 MCHC 32.7 g/dL (31.0-37.0) 04/23/17 10:35 RDW 13.3 % (11.5-15.5) 04/23/17 10:35 Plt Count 161 k/uL (150-450) 04/23/17 10:35 Neutrophils % 69 % 04/23/17 10:35 Lymphocytes % 21 % 04/23/17 10:35 Monocytes % 7 % 04/23/17 10:35 Eosinophils % 0 % 04/23/17 10:35 Basophils % 0 % 04/23/17 10:35 Neutrophils # 7.3 k/uL (1.3-7.7) 04/23/17 10:35 Lymphocytes # 2.2 k/uL (1.0-4.8) 04/23/17 10:35 Monocytes # 0.8 k/uL (0-1.0) 04/23/17 10:35 Eosinophils # 0.0 k/uL (0-0.7) 04/23/17 10:35 Basophils # 0.0 k/uL (0-0.2) 04/23/17 10:35 PT 13.4 sec (9.0-12.0) H 04/23/17 10:35 INR 1.4 (<1.1) 04/23/17 10:35 APTT 26.0 sec (22.0-30.0) 04/23/17 10:35 D-Dimer 2.31 mg/L FEU (<0.60) H 04/23/17 10:35 Sodium 135 mmol/L (137-145) L 04/23/17 10:35 Potassium 4.3 mmol/L (3.5-5.1) 04/23/17 10:35 Chloride 101 mmol/L (98-107) 04/23/17 10:35 Carbon Dioxide 26 mmol/L (22-30) 04/23/17 10:35 Anion Gap 8 mmol/L 04/23/17 10:35 BUN 27 mg/dL (9-20) H 04/23/17 10:35 Creatinine 1.13 mg/dL (0.66-1.25) 04/23/17 10:35 Est GFR (MDRD) Af Amer >60 (>60 ml/min/1.73 sqM) 04/23/17 10:35 Est GFR (MDRD) Non-Af >60 (>60 ml/min/1.73 sqM) 04/23/17 10:35 Glucose 92 mg/dL (74-99) 04/23/17 10:35 POC Glucose (mg/dL) 178 mg/dL (75-99) H 04/24/17 11:31 POC Glu Isotope Hydrologist СВЕТЛАНА Luisa Lou 04/24/17 11:[address] Glu mg/dL 108 mg/dL 04/23/17 10:35 Hemoglobin A1c 5.4 % (4.2-6.1) 04/23/17 10:35 Plasma Lactic Acid Ashvin 1.3 mmol/L (0.7-2.0) 04/23/17 10:35 Calcium 8.4 mg/dL (8.4-10.2) 04/23/17 10:35 Magnesium 2.1 mg/dL (1.6-2.3) 04/23/17 10:35 Total Bilirubin 1.5 mg/dL (0.2-1.3) H 04/23/17 10:35 AST 15 U/L (17-59) L 04/23/17 10:35 ALT 17 U/L (21-72) L 04/23/17 10:35 Alkaline Phosphatase 118 U/L (38-126) 04/23/17 10:35 Total Creatine Kinase 45 U/L (55-170) L 04/23/17 10:35 CK-MB (CK-2) 0.5 ng/mL (0.0-2.4) 04/23/17 10:35 CK-MB (CK-2) Rel Index 1.1 04/23/17 10:35 Troponin I 0.021 ng/mL (0.000-0.034) 04/23/17 10:35 NT-Pro-B Natriuret Pep 2780 pg/mL 04/23/17 10:35 Total Protein 6.2 g/dL (6.3-8.2) L 04/23/17 10:35 Albumin 2.9 g/dL (3.5-5.0) L 04/23/17 10:35 Thrombosis Risk Factor Assmnt - DVT/VTE Prophylaxis DVT/VTE Prophylaxis: Pharmacologic Prophylaxis ordered - Choose All That Apply Each Factor Represents 1 point: Abnormal pulmonary function (COPD), Serious lung disease incl. pneumonia (< 1month) Each Risk Factor Represents 3 Points: Age 75 years or older Thrombosis Risk Factor Assessment Total Risk Factor Score: 5 Thrombosis Risk Factor Assessment Level: High Risk Assessment and Plan Plan: 1. acute on chronic hypoxemic resp failure with Pulmonary fibrosis exacerbation presenting with increasing dyspnea, bilateral pneumonia, weight loss and increasing discharge, patient currently is receiving IV antibiotics IV Rocephin and Zithromax, with sputum cultures to be done, pulmonary consults were made with Dr. tenderness. Lennon him from Dr. Gaona/Alonso Lockwood's office 2. COPD exacerbation patient currently is in albuterol Atrovent, Pulmicort neb solution 0.5 mg twice a day and Solu-Medrol 60 mg every 6 hours, Singulair 3. Anorexia with weight loss 16 pounds over the 5 months, malignancy cannot be ruled out, PSA will be obtained, CA 19-9. Patient might need Megace or Remeron we would observe this closely as the patient has significant pneumonic process is going on 4. Chronic lower extremity edema without any prior history of DVT PE 5. Protein calorie malnutrition patient will be given supplemental boost and protein supplementation 6. CK D stage II, monitor labs DVT prophylaxis on Lovenox GI prophylaxis on IV Protonix
[2017-04-24] MEDS ORDERED: AZITHROMYCIN 500 MG in SODIUM CHLORIDE 0.9% 250 ML IVPB SCH (16:15)
[2017-04-24 16:34] LABS: Glucose,Whole Blood 100 mg/dL (75-99)
[2017-04-24] MEDS ORDERED: DILTIAZEM 5 MG/ML 5 ML VIAL IVP STA (19:47)
[2017-04-24] MEDS ORDERED: HEPARIN SODIUM,PORCINE 5,000 UNIT/ML 1 ML VIAL IV ONE (19:48)
[2017-04-24] MEDS ORDERED: HEPARIN SODIUM,PORCINE 5,000 UNIT/ML 1 ML VIAL IV PRN (19:48)
[2017-04-24 20:31] LABS: Basophils % (A) 0 %; CH 29.9; CHCM 31.1; Eosinophils % (A) 0 %; HCT 41.1 % (39.0-53.0); HDW 2.21; HGB 13.2 gm/dL (13.0-17.5); Luc # (Auto) 0.26; Luc % (Auto) 2; Lymphocytes # (A) 1.1 k/uL (1.0-4.8); Lymphocytes % (A) 8 %; MCH 30.9 pg (25.0-35.0); MCV 96.6 fL (80.0-100.0); Mean Platelet Volume 7.6; Monocytes # (A) 0.8 k/uL (0-1.0); Monocytes % (A) 6 %; Neutrophils # (A) 11.2 k/uL (1.3-7.7); Neutrophils % (A) 84 %; RBC 4.25 m/uL (4.30-5.90); RDW 13.4 % (11.5-15.5); WBC 13.4 k/uL (3.8-10.6); WBC (Perox) 13.58
[2017-04-24 20:36] LABS: INR 1.2 (<1.1); Partial Thromboplastin Time 24.7 sec (22.0-30.0); Prothrombin Time 11.5 sec (9.0-12.0)
[2017-04-24] MEDS: DILTIAZEM 125 MG in SODIUM CHLORIDE 0.9% 100 ML IV SCH (20:37)
[2017-04-24 20:38] LABS: Glucose,Whole Blood 186 mg/dL (75-99)
[2017-04-24] MEDS: HEPARIN SODIUM,PORCINE/D5W PMX 25,000 UNIT in DEXTROSE/WATER 1 500ML.BAG IV SCH (20:49)
[2017-04-24] MEDS: guaiFENesin 600 MG TABLET.ER PO SCH (21:52)
[2017-04-24] MEDS: MONTELUKAST 10 MG TAB PO SCH (21:52)
[2017-04-25 03:58] VITALS: RESP 20
[2017-04-25 06:05] LABS: Glucose,Whole Blood 121 mg/dL (75-99)
[2017-04-25] MEDS: INSULIN LISPRO (humaLOG) 300 UNIT/3 ML VIAL SQ SCH ×4 (06:30→21:43)
[2017-04-25] MEDS: PANTOPRAZOLE 40 MG TABLET PO SCH (06:30)
[2017-04-25] MEDS: methylPREDNISolone SOD SUCCI 125 MG/2 ML VIAL IV SCH ×3 (06:30→17:54)
[2017-04-25 08:02] LABS: Basophils % (A) 0 %; CH 29.8; CHCM 30.7; Eosinophils % (A) 0 %; HCT 43.9 % (39.0-53.0); HDW 2.19; HGB 13.4 gm/dL (13.0-17.5); Hypochromasia Slight; Luc # (Auto) 0.21; Luc % (Auto) 2; Lymphocytes # (A) 1.4 k/uL (1.0-4.8); Lymphocytes % (A) 10 %; MCH 29.7 pg (25.0-35.0); MCHC 30.5 g/dL (31.0-37.0); MCV 97.4 fL (80.0-100.0); Mean Platelet Volume 7.7; Monocytes # (A) 0.6 k/uL (0-1.0); Monocytes % (A) 4 %; Neutrophils # (A) 11.9 k/uL (1.3-7.7); Neutrophils % (A) 85 %; RDW 13.3 % (11.5-15.5); WBC 14.1 k/uL (3.8-10.6); WBC (Perox) 13.68
[2017-04-25 08:14] LABS: Anion Gap 11 mmol/L; Blood Urea Nitrogen 41 mg/dL (9-20); Calcium 8.7 mg/dL (8.4-10.2); Carbon Dioxide 25 mmol/L (22-30); Chloride 97 mmol/L (98-107); Glucose 115 mg/dL (74-99); Non-African American GFR(MDRD) >60 (>60 ml/min/1.73 sqM); Potassium 3.8 mmol/L (3.5-5.1); Sodium 133 mmol/L (137-145)
[2017-04-25] MEDS: BUDESONIDE 0.5 MG/2 ML NEBU INHALATION SCH ×2 (08:47→20:34)
[2017-04-25] MEDS: IPRATROPIUM-ALBUTEROL 3 ML NEB INHALATION SCH ×4 (08:47→20:36)
[2017-04-25] MEDS: ASPIRIN 81 MG CHEW PO SCH (08:50)
[2017-04-25] MEDS: VIT A,C & E-LUTEIN-MINERALS 1 EACH TAB PO SCH ×2 (08:51→20:05)
[2017-04-25] MEDS: guaiFENesin 600 MG TABLET.ER PO SCH ×2 (08:51→20:05)
[2017-04-25] MEDS: DILTIAZEM 125 MG in SODIUM CHLORIDE 0.9% 100 ML IV SCH ×2 (08:54→20:49)
[2017-04-25] MEDS ORDERED: ENOXAPARIN 40 MG/0.4 ML SYRINGE SQ SCH (09:00)
[2017-04-25 12:05] LABS: Glucose,Whole Blood 131 mg/dL (75-99)
[2017-04-25] MEDS: AZITHROMYCIN 500 MG TAB PO SCH (12:44)
--- NOTE | 2017-04-25 15:02 | P.PN ---
Subjective This is an 86-year-old gentleman with no prior documented history of hypertension, no diabetes, no hyperlipidemia, prior history of smoking, COPD, essential tremors, and pulmonary fibrosis. He presents to the hospital with symptoms of progressively worsening shortness of breath with associated persistent productive cough of green sputum. Patient states he felt very congested in his chest, and has been becoming more and more weak because of the persistent coughing. He also states that he has been experiencing chills at home but denies any overt fever. Blood pressure on arrival here 144/60 with a heart rate in the 90s, temperature 90.8 0.996% on 3 L of oxygen. Chest x-ray on admission revealed extensive bilateral open cities appearing predominantly coarse and interstitial. Likely in keeping with the patient's history of pulmonary fibrosis. There is an opaque sitting in the peripheral right midlung suggesting an infiltrate. CTA of the chest was performed which revealed pulmonary arterial hypertension with no evidence for pulmonary embolism. Severe diffuse lung disease compatible with pulmonary fibrosis, greater on the right with more confluent areas of interstitial change and some mildly enlarged right hilar lymph nodes. Possible infectious infiltrates. A blood cell count normal, hemoglobin 12.3, d-dimer 2.3, potassium 4.3, sodium 135, BUN 27 and creatinine 1.1. Magnesium 2.1, total bilirubin 1.5, AST 15, ALT 17, troponin 0.021. BNP level 2780. Patient was seen by Dr. Maldonado in the hospital in 2011 at which time a heart catheterization was performed which revealed normal coronary arteries. Cardiology consultation was requested because of questionable arrhythmia on presentation here. EKG performed via EMS showed a normal sinus rhythm with an intraventricular block. EKG on arrival here shows normal sinus rhythm with nonspecific ST-T wave changes. No evidence of atrial fibrillation. At the time of my examination this morning, patient states his breathing is improving and he seems to be coughing less this morning. He was initiated on steroids in the emergency room, as well as antibiotics. We will discontinue the patient's Nitropaste as he denies having any chest discomfort. He was also given a one-time dose of IV Lasix in the emergency room. 04/25/2017 Dear with Doppler study was performed results of which are yet pending. Cardiology's perspective, we will review the echo, if normal we'll follow this patient with you now on an as-needed basis only, please don't hesitate to call Objective - Vital Signs Vital signs: Vital Signs Temp 96.2 F L 04/25/17 08:00 Pulse 120 H 04/25/17 12:08 Resp 20 04/25/17 04:00 BP 101/64 04/25/17 12:00 Pulse Ox 95 04/25/17 12:00 Intake & Output 04/24/17 04/25/17 04/25/17 18:59 06:59 18:59 Intake Total 360 564.348 860.717 Output Total 250 Balance 110 564.348 860.717 Weight 62 kg 69.5 kg Intake: IV 466.14 80 Diltiazem 125 mg In 82.5 80 Sodium Chloride 0.9% 100 ml @ 10 MG/HR 10 mls/hr IV .[id number] [facility] Rx#: [id number] Heparin Sodium,Porcine/ 163.64 D5w Pmx 25,000 unit In Dextrose/Water 1 500ml. bag @ 12 UNITS/KG/HR 14. 88 mls/hr IV .Q24H [facility] Rx #:[id number] Sodium Chloride 0.9% 1, 220 000 ml @ 20 mls/hr IV . Q24H [facility] Rx#:[id number] Intake, IV Titration 98.208 263.717 Amount Diltiazem 125 mg In 61.417 Sodium Chloride 0.9% 100 ml @ 10 MG/HR 10 mls/hr IV .[id number] [facility] Rx#: [id number] Heparin Sodium,Porcine/ 98.208 102.3 D5w Pmx 25,000 unit In Dextrose/Water 1 500ml. bag @ 12 UNITS/KG/HR 14. 88 mls/hr IV .Q24H [facility] Rx #:[id number] cefTRIAXone 1,000 mg In 100 Sodium Chloride 0.9% 50 ml @ 100 mls/hr IVPB Q24HR [facility] Rx#:[id number] Oral 360 517 Output: Urine 250 Other: Voiding Method Urinal # Voids 1 1 # Bowel Movements 1 - Exam PHYSICAL EXAMINATION: HEENT: [Head is atraumatic, normocephalic. Pupils equal, round. Neck is supple. There is no elevated jugular venous pressure.] HEART EXAMINATION: [Heart S1, S2 normal. No murmur or gallop heard.] CHEST EXAMINATION: Lungs reveal coarse fibrotic rales throughout. ABDOMEN: [ Soft, nontender. Bowel sounds are heard. No organomegaly noted]. EXTREMITIES:[ 2+ peripheral pulses with no evidence of peripheral edema and no calf tenderness noted]. NEUROLOGIC [patient is awake, alert and oriented -3.] - Labs CBC & Chem 7: 04/25/17 07:36 04/25/17 07:36 Labs: Abnormal Lab Results - Last 24 Hours (Table) 04/24/17 04/24/17 04/24/17 Range/Units 16:32 20:03 20:37 WBC 13.4 H (3.8-10.6) k/uL RBC 4.25 L (4.30-5.90) m/uL MCHC (31.0-37.0) g/dL Neutrophils # 11.2 H (1.3-7.7) k/uL Sodium (137-145) mmol/L Chloride (98-107) mmol/L BUN (9-20) mg/dL Glucose (74-99) mg/dL POC Glucose (mg/dL) 100 H 186 H (75-99) mg/dL Troponin I (0.000-0.034) ng/mL 04/25/17 04/25/17 04/25/17 Range/Units 01:30 06:05 07:36 WBC 14.1 H (3.8-10.6) k/uL RBC (4.30-5.90) m/uL MCHC 30.5 L (31.0-37.0) g/dL Neutrophils # 11.9 H (1.3-7.7) k/uL Sodium (137-145) mmol/L Chloride (98-107) mmol/L BUN (9-20) mg/dL Glucose (74-99) mg/dL POC Glucose (mg/dL) 121 H (75-99) mg/dL Troponin I 0.044 H* (0.000-0.034) ng/mL 04/25/17 04/25/17 04/25/17 Range/Units 07:36 07:36 12:02 WBC (3.8-10.6) k/uL RBC (4.30-5.90) m/uL MCHC (31.0-37.0) g/dL Neutrophils # (1.3-7.7) k/uL Sodium 133 L (137-145) mmol/L Chloride 97 L (98-107) mmol/L BUN 41 H (9-20) mg/dL Glucose 115 H (74-99) mg/dL POC Glucose (mg/dL) 131 H (75-99) mg/dL Troponin I 0.099 H* (0.000-0.034) ng/mL Microbiology - Last 24 Hours (Table) 04/23/17 10:35 Blood Culture - Preliminary Blood No Growth after 48 hours Assessment and Plan Plan: Assessment and plan #1 in terms of progressively worsening shortness of breath with associated productive cough of green sputum as well as chills. Suggestion of possible pneumonia. Patient is currently on IV steroids and antibiotics. #2 questionable arrhythmia, no evidence of atrial fibrillation, EKG shows normal sinus rhythm with a bundle branch block pattern and nonspecific ST-T wave changes #3 COPD #4 pulmonary fibrosis #5 cardiac risk factors negative for hypertension, no diabetes, no hyperlipidemia, patient used to smoke, he quit in 1969, he does have a family history of premature coronary artery disease in his brother. Plan We will review the patient's echocardiogram with Doppler study. If normal we' ll follow this patient with you now on an as-needed basis only, please don't hesitate to call with any questions. DNP note has been reviewed, I agree with a documented findings and plan of care. Patient was seen and examined.
--- NOTE | 2017-04-25 15:15 | PN ---
DATE OF SERVICE: HISTORY OF PRESENT ILLNESS: The patient is an 86-year-old male who came in with increased shortness of breath, cough, and a history of pulmonary fibrosis. He follows with Dr. Lockwood in the office. He does use oxygen at home. He had a chest x-ray and CAT scan done where he is being treated for community-acquired pneumonia. Patient ( ) at bedtime. He still has been having some problems with cough. He states he did have a productive cough last evening. Patient states his appetite has been poor. Breathing has been okay. He is on room air. He states that the oxygen makes his nose dried out. No chest pain. On physical examination, vital signs show a temperature of 96.2, heart rate 128, respiratory rate 18, blood pressure is 98/54, oxygen saturation on room air is 95%. LABS: WBCs 14.1, hemoglobin 13.4, hematocrit 43.9, platelets are 246, sodium 133, potassium 3.8, chloride 97, carbon dioxide 25, BUN 41, creatinine is 1.14. Glucose 115, calcium 8.7. Troponin is 0.099. Blood cultures with no growth. GENERAL: He is an 86-year-old male denying any chest pain at this time, appears comfortable. HEENT: Pupils are reactive. Mucous membranes slightly dry. Neck is supple. Trach is midline. LUNGS: Sounds are diminished throughout. CARDIOVASCULAR: S1 and S2 heard; regular. ABDOMEN: Soft. Bowel sounds heard. EXTREMITIES: No edema. NEUROLOGIC: He is awake, alert. IMPRESSION: 1. Idiopathic pulmonary fibrosis. 2. Community-acquired pneumonia. 3. Elevated troponins. 4. Anemia. 5. Mild protein calorie malnutrition. 6. Pulmonary cachexia. 7. Pulmonary hypertension. 8. Enlarged hilar lymph nodes. 9. Essential tremors. PLAN: Continue oxygen to keep stats 92% or better. Await sputum culture results. Continue with GI and DVT prophylaxis. Continue with pulmonary hygiene. Increase activity as tolerated. Medications have been reviewed. Continue with nebulizer treatments as ordered, antibiotics as ordered and IV steroids can look at starting to taper down IV steroids tomorrow. Will continue to follow patient closely with you and make further changes as necessary.
--- NOTE | 2017-04-25 15:27 | P.PN ---
Subjective This is a pleasant 86-year-old old gentleman patient of Dr. Latrell Lockwood and Dr Stephen, he has underlying history of pulmonary fibrosis, hypertension, COPD, decreased hearing, and also arthritis, he has been having problems for several years now for the pulmonary fibrosis and was recently placed on oxygen by Dr Marley Lockwood, at 2 L nasal cannula. Patient now complains of worsening cough, weakness, purulent productive sputum of yellowish green sputum, no fever no chills, patient has chronic leg edema right side, no history of PE or DVT in the past. Patient denies any recent falls however weakness continues to progress, and also has lost approximately 16 pounds since May 2017. Patient also has diminished appetite. In the emergency room. A CAT scan of the chest that shows pulmonary arterial hypertension, interstitial thickening with diffuse honeycombing, right greater than left, more conclusive and interstitial change particularly along the left posterior right lung and right lower lobe, and focal densities in the posterior left lower lobe, enlarged lymph node up to 1.2 right side, 2.1 cm subcarinal lymph node, no evidence of pulmonary emboli 04/25: Patient has been seen in consultation by cardiology. Echocardiogram has been ordered. Repeat troponins were 0.044 and 0.099. Patient went into atrial fibrillation last night and started on Cardizem drip. Patient instructed to avoid caffeine. Patient is also followed by Dr. Pascual from pulmonary medicine. Mucinex has been started. She is currently on Solu-Medrol 60 mg IV every 6 hours along with ceftriaxone and azithromycin, DuoNeb treatments and Pulmicort. Physical therapy consult is in place. Objective - Vital Signs Vital signs: Vital Signs Temp 96.2 F L 04/25/17 08:00 Pulse 128 H 04/25/17 09:00 Resp 20 04/25/17 04:00 BP 98/54 04/25/17 08:00 Pulse Ox 95 04/25/17 08:47 Intake & Output 04/24/17 04/25/17 04/25/17 18:59 06:59 18:59 Intake Total 360 564.348 500.717 Output Total 250 Balance 110 564.348 500.717 Weight 62 kg 69.5 kg Intake: IV 466.14 Diltiazem 125 mg In 82.5 Sodium Chloride 0.9% 100 ml @ 7.5 MG/HR 7.5 mls/hr IV .[id number] [facility] Rx#: [id number] Heparin Sodium,Porcine/ 163.64 D5w Pmx 25,000 unit In Dextrose/Water 1 500ml. bag @ 12 UNITS/KG/HR 14. 88 mls/hr IV .Q24H [facility] Rx #:[id number] Sodium Chloride 0.9% 1, 220 000 ml @ 20 mls/hr IV . Q24H [facility] Rx#:[id number] Intake, IV Titration 98.208 163.717 Amount Diltiazem 125 mg In 61.417 Sodium Chloride 0.9% 100 ml @ 10 MG/HR 10 mls/hr IV .[id number] [facility] Rx#: [id number] Heparin Sodium,Porcine/ 98.208 102.3 D5w Pmx 25,000 unit In Dextrose/Water 1 500ml. bag @ 12 UNITS/KG/HR 14. 88 mls/hr IV .Q24H [facility] Rx #:[id number] Oral 360 337 Output: Urine 250 Other: Voiding Method Urinal # Voids 1 1 # Bowel Movements 1 - Exam General appearance: cooperative, no acute distress - EENT Eyes: anicteric sclerae, EOMI, dentition normal, normal appearance ENT: hearing grossly normal, NA/AT, normal oropharynx - Neck Neck: no lymphadenopathy, normal ROM, no other, no rigidity, no stridor, no thyromegaly - Respiratory Respiratory: bilateral: CTA, negative: diminished, dullness, rales, rhonchi, wheezing - Cardiovascular Rhythm: irregular Heart sounds: normal: S1, S2 Abnormal Heart Sounds: no systolic murmur, no diastolic murmur, no rub, no S3 Gallop, no S4 Gallop, no click, no other - Gastrointestinal General gastrointestinal: soft - Integumentary Integumentary: normal, normal turgor - Neurologic Neurologic: CNII-XII intact - Musculoskeletal Musculoskeletal: gait normal, strength equal bilaterally - Psychiatric Psychiatric: A&O x's 3, appropriate affect, intact judgment & insight - Labs CBC & Chem 7: 04/25/17 07:36 04/25/17 07:36 Labs: Abnormal Lab Results - Last 24 Hours (Table) 04/24/17 04/24/17 04/24/17 Range/Units 11:31 16:32 20:03 WBC 13.4 H (3.8-10.6) k/uL RBC 4.25 L (4.30-5.90) m/uL MCHC (31.0-37.0) g/dL Neutrophils # 11.2 H (1.3-7.7) k/uL Sodium (137-145) mmol/L Chloride (98-107) mmol/L BUN (9-20) mg/dL Glucose (74-99) mg/dL POC Glucose (mg/dL) 178 H 100 H (75-99) mg/dL Troponin I (0.000-0.034) ng/mL 04/24/17 04/25/17 04/25/17 Range/Units 20:37 01:30 06:05 WBC (3.8-10.6) k/uL RBC (4.30-5.90) m/uL MCHC (31.0-37.0) g/dL Neutrophils # (1.3-7.7) k/uL Sodium (137-145) mmol/L Chloride (98-107) mmol/L BUN (9-20) mg/dL Glucose (74-99) mg/dL POC Glucose (mg/dL) 186 H 121 H (75-99) mg/dL Troponin I 0.044 H* (0.000-0.034) ng/mL 04/25/17 04/25/17 04/25/17 Range/Units 07:36 07:36 07:36 WBC 14.1 H (3.8-10.6) k/uL RBC (4.30-5.90) m/uL MCHC 30.5 L (31.0-37.0) g/dL Neutrophils # 11.9 H (1.3-7.7) k/uL Sodium 133 L (137-145) mmol/L Chloride 97 L (98-107) mmol/L BUN 41 H (9-20) mg/dL Glucose 115 H (74-99) mg/dL POC Glucose (mg/dL) (75-99) mg/dL Troponin I 0.099 H* (0.000-0.034) ng/mL Microbiology - Last 24 Hours (Table) 04/23/17 10:35 Blood Culture - Preliminary Blood No Growth after 24 hours Assessment and Plan Plan: 1. acute on chronic hypoxemic resp failure with Pulmonary fibrosis exacerbation presenting with increasing dyspnea, bilateral pneumonia, weight loss and increasing discharge, patient currently is receiving IV antibiotics IV Rocephin and Zithromax, with sputum cultures to be done, pulmonary consults were made with Dr. Pascual. 2. COPD exacerbation patient currently is in albuterol Atrovent, Pulmicort neb solution 0.5 mg twice a day and Solu-Medrol 60 mg every 6 hours, Singulair 3. Anorexia with weight loss 16 pounds over the 5 months, malignancy cannot be ruled out, PSA will be obtained, CA 19-9. Patient might need Megace or Remeron we would observe this closely as the patient has significant pneumonic process is going on 4. Chronic lower extremity edema without any prior history of DVT PE 5. Protein calorie malnutrition patient will be given supplemental boost and protein supplementation 6. CKD stage II, monitor labs 7. New onset of atrial fibrillation with rapid ventricular response. Patient is on Cardizem drip. Cardiology is following. DVT prophylaxis on Lovenox GI prophylaxis on IV Protonix Discharge plan: Either home with homecare or subacute rehab. Impression and plan of care have been directed as dictated by the signing physician. Natasha Suárez nurse practitioner acting as scribe for signing physician.
[2017-04-25 16:53] LABS: Glucose,Whole Blood 141 mg/dL (75-99)
[2017-04-25] MEDS: HEPARIN SODIUM,PORCINE/D5W PMX 25,000 UNIT in DEXTROSE/WATER 1 500ML.BAG IV SCH (20:04)
[2017-04-25] MEDS: MONTELUKAST 10 MG TAB PO SCH (20:05)
[2017-04-25 20:44] LABS: Glucose,Whole Blood 158 mg/dL (75-99)
[2017-04-26] MEDS: methylPREDNISolone SOD SUCCI 125 MG/2 ML VIAL IV SCH ×2 (00:39→06:49)
[2017-04-26 06:30] LABS: Basophils % (A) 0 %; CH 30.1; CHCM 32.1; Eosinophils % (A) 0 %; HCT 37.5 % (39.0-53.0); HDW 2.36; HGB 12.1 gm/dL (13.0-17.5); Luc # (Auto) 0.16; Luc % (Auto) 1; Lymphocytes # (A) 1.7 k/uL (1.0-4.8); Lymphocytes % (A) 14 %; MCH 30.4 pg (25.0-35.0); MCHC 32.2 g/dL (31.0-37.0); MCV 94.2 fL (80.0-100.0); Mean Platelet Volume 7.3; Monocytes # (A) 0.5 k/uL (0-1.0); Monocytes % (A) 4 %; Neutrophils # (A) 9.8 k/uL (1.3-7.7); Neutrophils % (A) 81 %; RBC 3.98 m/uL (4.30-5.90); RDW 13.4 % (11.5-15.5); WBC 12.2 k/uL (3.8-10.6)
[2017-04-26 06:31] LABS: Glucose,Whole Blood 133 mg/dL (75-99)
[2017-04-26] MEDS: PANTOPRAZOLE 40 MG TABLET PO SCH (06:48)
[2017-04-26] MEDS: INSULIN LISPRO (humaLOG) 300 UNIT/3 ML VIAL SQ SCH ×2 (06:49→14:53)
[2017-04-26] MEDS: DILTIAZEM 125 MG in SODIUM CHLORIDE 0.9% 100 ML IV SCH (07:42)
[2017-04-26] MEDS: VIT A,C & E-LUTEIN-MINERALS 1 EACH TAB PO SCH (07:43)
[2017-04-26] MEDS: ASPIRIN 81 MG CHEW PO SCH (07:43)
[2017-04-26] MEDS: AZITHROMYCIN 500 MG TAB PO SCH (07:43)
[2017-04-26] MEDS: guaiFENesin 600 MG TABLET.ER PO SCH (07:43)
[2017-04-26 08:16] VITALS: BP 109/63; TEMP 97.3
[2017-04-26] MEDS: IPRATROPIUM-ALBUTEROL 3 ML NEB INHALATION SCH ×2 (08:55→12:01)
[2017-04-26] MEDS: BUDESONIDE 0.5 MG/2 ML NEBU INHALATION SCH (08:55)
[2017-04-26] MEDS ORDERED: VERAPAMIL SR 180 MG TABLET.ER PO SCH (11:00)
[2017-04-26 11:38] LABS: Glucose,Whole Blood 129 mg/dL (75-99)
--- NOTE | 2017-04-26 12:13 | P.PN ---
Subjective This is an 86-year-old male being evaluated and examined today on the selective care unit. This patient came in with increasing shortness of breath, cough and history of pulmonary fibrosis. He sees Dr. Lockwood in the outpatient setting. Patient did have a chest x-ray and CAT scan and was being treated for community-acquired pneumonia. Patient states that his cough is significantly improved. Patient was initially using oxygen however in the last 24 hours has not required and has been maintaining his oxygen saturations above 92%. Patient states his breathing has significantly improved and he was like to be discharged. Objective - Vital Signs Vital signs: Vital Signs Temp 97.3 F L 04/26/17 08:00 Pulse 100 04/26/17 09:11 Resp 20 04/26/17 08:00 BP 109/63 04/26/17 08:00 Pulse Ox 96 04/26/17 08:00 Intake & Output 04/25/17 04/26/17 04/26/17 18:59 06:59 18:59 Intake Total 1024.025 871.523 348.833 Output Total 700 Balance 1024.025 171.523 348.833 Weight 68.4 kg Intake: IV 80 273.04 Diltiazem 125 mg In 80 110 Sodium Chloride 0.9% 100 ml @ 10 MG/HR 10 mls/hr IV .[id number] [facility] Rx#: [id number] Heparin Sodium,Porcine/ 163.04 D5w Pmx 25,000 unit In Dextrose/Water 1 500ml. bag @ 12 UNITS/KG/HR 14. 88 mls/hr IV .Q24H [facility] Rx #:[id number] Intake, IV Titration 427.025 498.483 108.833 Amount Diltiazem 125 mg In 61.417 119.167 108.833 Sodium Chloride 0.9% 100 ml @ 10 MG/HR 10 mls/hr IV .[id number] [facility] Rx#: [id number] Heparin Sodium,Porcine/ 265.608 379.316 D5w Pmx 25,000 unit In Dextrose/Water 1 500ml. bag @ 12 UNITS/KG/HR 14. 88 mls/hr IV .Q24H [facility] Rx #:[id number] cefTRIAXone 1,000 mg In 100 Sodium Chloride 0.9% 50 ml @ 100 mls/hr IVPB Q24HR [facility] Rx#:[id number] Oral 517 100 240 Output: Urine 700 Other: Voiding Method Urinal Urinal # Voids 1 - Exam GENERAL EXAM: Alert, active, comfortable in no apparent distress. HEAD: Normocephalic. EYES: Normal reaction of pupils, equal size. NOSE: Clear with pink turbinates. THROAT: No erythema or exudates. NECK: No masses, no JVD. CHEST: No chest wall deformity. LUNGS: Equal air entry with no crackles, wheeze, rhonchi or dullness. Bases diminished CVS: S1 and S2 normal with no audible mumurs, regular rhythm. ABDOMEN: No hepatosplenomegaly, normal bowel sounds, no guarding or rigidity. EXTREMITIES: No edema noted, pedal pulses palpable. SKIN: No rashes CENTRAL NERVOUS SYSTEM: No focal deficits, tone is normal in all 4 extremities. - Labs CBC & Chem 7: 04/26/17 05:45 04/25/17 07:36 Labs: Abnormal Lab Results - Last 24 Hours (Table) 04/25/17 04/25/17 04/26/17 Range/Units 16:50 20:42 01:15 WBC (3.8-10.6) k/uL RBC (4.30-5.90) m/uL Hgb (13.0-17.5) gm/dL Hct (39.0-53.0) % Neutrophils # (1.3-7.7) k/uL APTT 48.4 H (22.0-30.0) sec POC Glucose (mg/dL) 141 H 158 H (75-99) mg/dL Troponin I (0.000-0.034) ng/mL 04/26/17 04/26/17 04/26/17 Range/Units 05:45 05:45 05:45 WBC 12.2 H (3.8-10.6) k/uL RBC 3.98 L (4.30-5.90) m/uL Hgb 12.1 L (13.0-17.5) gm/dL Hct 37.5 L (39.0-53.0) % Neutrophils # 9.8 H (1.3-7.7) k/uL APTT 49.5 H (22.0-30.0) sec POC Glucose (mg/dL) (75-99) mg/dL Troponin I 0.055 H* (0.000-0.034) ng/mL 04/26/17 04/26/17 Range/Units 06:25 11:36 WBC (3.8-10.6) k/uL RBC (4.30-5.90) m/uL Hgb (13.0-17.5) gm/dL Hct (39.0-53.0) % Neutrophils # (1.3-7.7) k/uL APTT (22.0-30.0) sec POC Glucose (mg/dL) 133 H 129 H (75-99) mg/dL Troponin I (0.000-0.034) ng/mL Microbiology - Last 24 Hours (Table) 04/25/17 08:49 Gram Stain - Preliminary Sputum 04/23/17 10:35 Blood Culture - Preliminary Blood No Growth after 48 hours Assessment and Plan Plan: Assessment Idiopathic pulmonary fibrosis Community acquired pneumonia Elevated troponins Anemia Mild protein calorie malnutrition Pulmonary cachexia Pulmonary hypertension Enlarged hilar lymph nodes Essential tremors Plan Patient could be cleared for discharge from a pulmonary standpoint. Medications have been reviewed and will be continued. Continue with nebulizer treatments as ordered. Patient will need oral steroids and oral antibiotics in the outpatient setting of discharge. Given continue with pulmonary hygiene and supportive care. Increase activity as tolerated. We will continue to monitor labs/results and adjust treatment as necessary. I performed an examination of the patient and discussed their management with the nurse practitioner. I have reviewed the nurse practitioner's note and agree with the documented findings and plan of care. We covering for Dr. ABELINO Lockwood today.
--- NOTE | 2017-04-26 12:25 | P.DS ---
Providers Date of admission: 04/23/17 15:22 Expected date of discharge: 04/26/17 Attending physician: Betsey Diez Consults: 04/23/17 15:22 Consult Physician Routine Consulting Provider: Berto Lockwood Consult Reason/Comments: Pulmonary fibrosis Do you want consulting provider notified?: Yes 04/24/17 19:43 Consult Physician Urgent Consulting Provider: Hammad Coffman Consult Reason/Comments: new a fib Do you want consulting provider notified?: Yes Primary care physician: [place] Hospital Course: This is a pleasant 86-year-old old gentleman patient of Dr. Latrell Lockwood and Dr Stephen, he has underlying history of pulmonary fibrosis, hypertension, COPD, decreased hearing, and also arthritis, he has been having problems for several years now for the pulmonary fibrosis and was recently placed on oxygen by Dr Marley Lockwood, at 2 L nasal cannula. Patient now complains of worsening cough, weakness, purulent productive sputum of yellowish green sputum, no fever no chills, patient has chronic leg edema right side, no history of PE or DVT in the past. Patient denies any recent falls however weakness continues to progress, and also has lost approximately 16 pounds since May 2017. Patient also has diminished appetite. In the emergency room. A CAT scan of the chest that shows pulmonary arterial hypertension, interstitial thickening with diffuse honeycombing, right greater than left, more conclusive and interstitial change particularly along the left posterior right lung and right lower lobe, and focal densities in the posterior left lower lobe, enlarged lymph node up to 1.2 right side, 2.1 cm subcarinal lymph node, no evidence of pulmonary emboli 04/25: Patient has been seen in consultation by cardiology. Echocardiogram has been ordered. Repeat troponins were 0.044 and 0.099. Patient went into atrial fibrillation last night and started on Cardizem drip. Patient instructed to avoid caffeine. Patient is also followed by Dr. Pascual from pulmonary medicine. Mucinex has been started. She is currently on Solu-Medrol 60 mg IV every 6 hours along with ceftriaxone and azithromycin, DuoNeb treatments and Pulmicort. Physical therapy consult is in place. 04/26: Patient is currently in atrial fibrillation with controlled rate. Physical therapy has evaluated with recommendations for home with homecare. Echocardiogram has been obtained but report is pending. He is continued on heparin and Cardizem drips and cardiology has added and verapamil and eliquis. Patient is agreeable to pay co-pay on eliquis. Breathing status is much improved. Solu-Medrol will be switched to oral and patient will be discharged home today in stable condition. Patient has been cleared by cardiology and pulmonary medicine. Patient is anxious to be discharged. Discharge diagnoses: 1. acute on chronic hypoxemic resp failure with Pulmonary fibrosis exacerbation 2. COPD exacerbation 3. Anorexia and severe protein calorie malnutrition with weight loss 16 pounds over the 5 months 4. Chronic lower extremity edema without any prior history of DVT PE 5. Protein calorie malnutrition 6. CKD stage II 7. New onset of atrial fibrillation with rapid ventricular response with possible paroxysmal atrial fibrillation Discharge plan: home with homecare Impression and plan of care have been directed as dictated by the signing physician. Natasha Suárez nurse practitioner acting as scribe for signing physician. Patient Condition at Discharge: Good Plan - Discharge Summary New Discharge Prescriptions: Albuterol Nebulized [Ventolin Nebulized] 2.5 mg INHALATION Q6H #1 nebu Levofloxacin [Levaquin] 500 mg PO DAILY #5 tab Pantoprazole [Protonix] 40 mg PO AC-BRKFST #30 tab predniSONE 0 mg PO DIRECTED #60 tab Verapamil Sr [Isoptin Sr] 180 mg PO DAILY #30 tab Discharge Medication List Aspirin 81 mg PO DAILY 04/23/17 [History] Budesonide 0.5 mg IH RT-BID 04/23/17 [History] Montelukast Sodium [Singulair] 10 mg PO HS 04/23/17 [History] Vit C/E/Zn/Coppr/Lutein/Zeaxan [Preservision Areds 2 Softgel] 1 cap PO BID 04/23 [History] Albuterol Nebulized [Ventolin Nebulized] 2.5 mg INHALATION Q6H #1 nebu 04/26/17 [Rx] Levofloxacin [Levaquin] 500 mg PO DAILY #5 tab 04/26/17 [Rx] Pantoprazole [Protonix] 40 mg PO AC-BRKFST #30 tab 04/26/17 [Rx] Verapamil Sr [Isoptin Sr] 180 mg PO DAILY #30 tab 04/26/17 [Rx] guaiFENesin [Mucinex] 1,200 mg PO Q12HR #0 tab 04/26/17 [Rx] predniSONE 0 mg PO DIRECTED #60 tab 04/26/17 [Rx] Follow up Appointment(s)/Referral(s): [facility] [Provider Group] - 1 Week Pablo Stephen MD [Primary Care Provider] - 1 Week Berto Lockwood MD [STAFF PHYSICIAN] - 1 Week [facility], [NON-STAFF] - Patient Instructions/Handouts: Verapamil (By mouth), Apixaban (By mouth), Atrial Fibrillation (GEN) Activity/Diet/Wound Care/Special Instructions: *Ghanshyam script at [facility] - tow picker at time of discharge, free copay card applied* Discharge Disposition: HOME WITH HOME HEALTH SERVICES
--- NOTE | 2017-04-26 13:14 | P.PN ---
Subjective This is an 86-year-old gentleman with no prior documented history of hypertension, no diabetes, no hyperlipidemia, prior history of smoking, COPD, essential tremors, and pulmonary fibrosis. He presents to the hospital with symptoms of progressively worsening shortness of breath with associated persistent productive cough of green sputum. Patient states he felt very congested in his chest, and has been becoming more and more weak because of the persistent coughing. He also states that he has been experiencing chills at home but denies any overt fever. Blood pressure on arrival here 144/60 with a heart rate in the 90s, temperature 90.8 0.996% on 3 L of oxygen. Chest x-ray on admission revealed extensive bilateral open cities appearing predominantly coarse and interstitial. Likely in keeping with the patient's history of pulmonary fibrosis. There is an opaque sitting in the peripheral right midlung suggesting an infiltrate. CTA of the chest was performed which revealed pulmonary arterial hypertension with no evidence for pulmonary embolism. Severe diffuse lung disease compatible with pulmonary fibrosis, greater on the right with more confluent areas of interstitial change and some mildly enlarged right hilar lymph nodes. Possible infectious infiltrates. A blood cell count normal, hemoglobin 12.3, d-dimer 2.3, potassium 4.3, sodium 135, BUN 27 and creatinine 1.1. Magnesium 2.1, total bilirubin 1.5, AST 15, ALT 17, troponin 0.021. BNP level 2780. Patient was seen by Dr. Maldonado in the hospital in 2011 at which time a heart catheterization was performed which revealed normal coronary arteries. Cardiology consultation was requested because of questionable arrhythmia on presentation here. EKG performed via EMS showed a normal sinus rhythm with an intraventricular block. EKG on arrival here shows normal sinus rhythm with nonspecific ST-T wave changes. No evidence of atrial fibrillation. At the time of my examination this morning, patient states his breathing is improving and he seems to be coughing less this morning. He was initiated on steroids in the emergency room, as well as antibiotics. We will discontinue the patient's Nitropaste as he denies having any chest discomfort. He was also given a one-time dose of IV Lasix in the emergency room. 04/25/2017 Echo with Doppler study was performed results of which are yet pending. Cardiology's perspective, we will review the echo, if normal we'll follow this patient with you now on an as-needed basis only, please don't hesitate to call 04/26/2017. Last evening patient did go into atrial fibrillation with rapid ventricular response and was initiated on IV Cardizem drip along with heparin drip. He was started today on verapamil 120 mg daily, he will also be initiated on Eliquis 2- 1/2 mg one tablet by mouth twice a day and the heparin and Cardizem IV will be discontinued. Objective - Vital Signs Vital signs: Vital Signs Temp 97.3 F L 04/26/17 08:00 Pulse 84 04/26/17 12:19 Resp 20 04/26/17 08:00 BP 109/63 04/26/17 08:00 Pulse Ox 96 04/26/17 08:00 Intake & Output 04/25/17 04/26/17 04/26/17 18:59 06:59 18:59 Intake Total 1024.025 871.523 348.833 Output Total 700 Balance 1024.025 171.523 348.833 Weight 68.4 kg Intake: IV 80 273.04 Diltiazem 125 mg In 80 110 Sodium Chloride 0.9% 100 ml @ 10 MG/HR 10 mls/hr IV .[id number] [facility] Rx#: [id number] Heparin Sodium,Porcine/ 163.04 D5w Pmx 25,000 unit In Dextrose/Water 1 500ml. bag @ 12 UNITS/KG/HR 14. 88 mls/hr IV .Q24H [facility] Rx #:[id number] Intake, IV Titration 427.025 498.483 108.833 Amount Diltiazem 125 mg In 61.417 119.167 108.833 Sodium Chloride 0.9% 100 ml @ 10 MG/HR 10 mls/hr IV .[id number] [facility] Rx#: [id number] Heparin Sodium,Porcine/ 265.608 379.316 D5w Pmx 25,000 unit In Dextrose/Water 1 500ml. bag @ 12 UNITS/KG/HR 14. 88 mls/hr IV .Q24H [facility] Rx #:[id number] cefTRIAXone 1,000 mg In 100 Sodium Chloride 0.9% 50 ml @ 100 mls/hr IVPB Q24HR [facility] Rx#:[id number] Oral 517 100 240 Output: Urine 700 Other: Voiding Method Urinal Urinal # Voids 1 - Exam PHYSICAL EXAMINATION: HEENT: [Head is atraumatic, normocephalic. Pupils equal, round. Neck is supple. There is no elevated jugular venous pressure.] HEART EXAMINATION: [Heart S1, S2 irregularly irregular . No murmur or gallop heard.] CHEST EXAMINATION: Lungs reveal coarse fibrotic rales throughout. ABDOMEN: [ Soft, nontender. Bowel sounds are heard. No organomegaly noted]. EXTREMITIES:[ 2+ peripheral pulses with no evidence of peripheral edema and no calf tenderness noted]. NEUROLOGIC [patient is awake, alert and oriented -3.] - Labs CBC & Chem 7: 04/26/17 05:45 04/25/17 07:36 Labs: Abnormal Lab Results - Last 24 Hours (Table) 04/25/17 04/25/17 04/26/17 Range/Units 16:50 20:42 01:15 WBC (3.8-10.6) k/uL RBC (4.30-5.90) m/uL Hgb (13.0-17.5) gm/dL Hct (39.0-53.0) % Neutrophils # (1.3-7.7) k/uL APTT 48.4 H (22.0-30.0) sec POC Glucose (mg/dL) 141 H 158 H (75-99) mg/dL Troponin I (0.000-0.034) ng/mL 04/26/17 04/26/17 04/26/17 Range/Units 05:45 05:45 05:45 WBC 12.2 H (3.8-10.6) k/uL RBC 3.98 L (4.30-5.90) m/uL Hgb 12.1 L (13.0-17.5) gm/dL Hct 37.5 L (39.0-53.0) % Neutrophils # 9.8 H (1.3-7.7) k/uL APTT 49.5 H (22.0-30.0) sec POC Glucose (mg/dL) (75-99) mg/dL Troponin I 0.055 H* (0.000-0.034) ng/mL 04/26/17 04/26/17 Range/Units 06:25 11:36 WBC (3.8-10.6) k/uL RBC (4.30-5.90) m/uL Hgb (13.0-17.5) gm/dL Hct (39.0-53.0) % Neutrophils # (1.3-7.7) k/uL APTT (22.0-30.0) sec POC Glucose (mg/dL) 133 H 129 H (75-99) mg/dL Troponin I (0.000-0.034) ng/mL Microbiology - Last 24 Hours (Table) 04/23/17 10:35 Blood Culture - Preliminary Blood No Growth after 72 hours 04/25/17 08:49 Gram Stain - Preliminary Sputum Assessment and Plan Plan: Assessment and plan #1 Symptoms of progressively worsening shortness of breath with associated productive cough of green sputum as well as chills. Suggestion of possible pneumonia. Patient is currently on IV steroids and antibiotics. #2 questionable arrhythmia, no evidence of atrial fibrillation, EKG shows normal sinus rhythm with a bundle branch block pattern and nonspecific ST-T wave changes #3 COPD #4 pulmonary fibrosis #5 cardiac risk factors negative for hypertension, no diabetes, no hyperlipidemia, patient used to smoke, he quit in 1969, he does have a family history of premature coronary artery disease in his brother. #6 paroxysmal atrial fibrillation Plan We will discontinue the IV heparin and initiate Eliquis 2-1/2 mg one tablet by mouth twice a day. Discontinue IV Cardizem drip and start the patient on verapamil 120 mg daily. DNP note has been reviewed, I agree with a documented findings and plan of care. Patient was seen and examined.
[2017-04-26] MEDS ORDERED: APIXABAN 2.5 MG TABLET PO SCH (13:15)
[2017-04-26 15:03] VITALS: PULSE 107
[2017-04-26] MEDS ORDERED: methylPREDNISolone SOD SUCCI 40 MG/ML 1 ML VIAL IV SCH (16:00)
--- NOTE | 2017-04-26 16:11 | ECHOF ---
Referral Reason:shortness of breath MEASUREMENTS -------- HEIGHT: 182.9 cm WEIGHT: 61.7 kg BP: 118/57 LAESV Index (A-L): 21.05 ml/m IVSd: 1.0 cm (0.6 - 1.1) LVIDd: 5.2 cm (3.9 - 5.3) LVPWd: 1.0 cm (0.6 - 1.1) IVSs: 1.4 cm LVIDs: 3.9 cm LVPWs: 1.3 cm EDV(Teich): 129 ml ESV(Teich): 68 ml EF(Teich): 47 % %FS: 24 % SV(Teich): 61 ml Ao Diam: 4.2 cm (2.0 - 3.7) AV Cusp: 1.7 cm (1.5 - 2.6) MV EXCURSION: 15.271 mm (> 18.000) MV EF SLOPE: 75 mm/s (70 - 150) EPSS: 1.4 cm MV E Cam: 0.75 m/s MV DecT: 275 ms MV A Cam: 0.99 m/s MV E/A Ratio: 0.76 AR PHT: 801 ms RAP: 5.00 mmHg RVSP: 7.97 mmHg FINDINGS -------- Sinus rhythm. This was a technically difficult study with suboptimal views. Overall left ventricular systolic function is low-normal with, an EF between 50 - 55 %. The RV was not well visualized. Normal LA size by volume 22+/-6 ml/m2. The right atrium was not well visualized. Aortic valve is trileaflet and is mildly thickened. Trace amount of aortic regurgitation. There is no evidence of aortic stenosis. The mitral valve leaflets are mildly thickened. Mild mitral annular calcification present. There is trace to mild mitral regurgitation. Trace tricuspid regurgitation present. There is no evidence of pulmonary hypertension. The right ventricular systolic pressure, as measured by Doppler, is 7.97mmHg. The pulmonic valve was not well visualized. The aortic root size is normal. IVC Not well visulized. The pericardium is normal. There is no pericardial effusion. CONCLUSIONS -------- 1. Sinus rhythm. 2. Mild mitral annular calcification present. 3. There is trace to mild mitral regurgitation. 4. Trace tricuspid regurgitation present. 5. There is no evidence of pulmonary hypertension. 6. The right ventricular systolic pressure, as measured by Doppler, is 7.97mmHg. 7. The pulmonic valve was not well visualized. 8. The aortic root size is normal. 9. IVC Not well visulized. 10. There is no pericardial effusion. 11. This was a technically difficult study with suboptimal views. 12. Overall left ventricular systolic function is low-normal with, an EF between 50 - 55 %. 13. The RV was not well visualized. 14. Normal LA size by volume 22+/-6 ml/m2. 15. The right atrium was not well visualized. 16. Aortic valve is trileaflet and is mildly thickened. 17. Trace amount of aortic regurgitation. 18. The mitral valve leaflets are mildly thickened. [employer]AYER: Jesus Manuel Hardin RDCS
[2017-04-27] MEDS ORDERED: predniSONE 20 MG TAB PO SCH (09:00)
== END 2017-04-26 17:59 | disposition home health service (06) | DRG 190 ==
LOC: EC 10:23 → 6SEL 15:22
PROVIDERS: ADMIT Family Medicine; ATTEND Family Medicine
DX: J44.0 Chronic obstructive pulmonary disease with (acute) lower respiratory infection (principal); J96.21 Acute and chronic respiratory failure with hypoxia; E43 Unspecified severe protein-calorie malnutrition; J18.9 Pneumonia, unspecified organism; I27.2 Other secondary pulmonary hypertension; J84.112 Idiopathic pulmonary fibrosis; R64 Cachexia; I48.0 Paroxysmal atrial fibrillation; Z99.81 Dependence on supplemental oxygen; J44.1 Chronic obstructive pulmonary disease with (acute) exacerbation; I45.4 Nonspecific intraventricular block; D64.9 Anemia, unspecified; Z68.20 Body mass index [BMI] 20.0-20.9, adult; I12.9 Hypertensive chronic kidney disease with stage 1 through stage 4 chronic kidney disease, or unspecified chronic kidney disease; N18.2 Chronic kidney disease, stage 2 (mild); R59.9 Enlarged lymph nodes, unspecified; G25.0 Essential tremor; M19.91 Primary osteoarthritis, unspecified site; H91.90 Unspecified hearing loss, unspecified ear; Z98.42 Cataract extraction status, left eye; Z98.41 Cataract extraction status, right eye; Z96.1 Presence of intraocular lens; Z87.891 Personal history of nicotine dependence; Z79.82 Long term (current) use of aspirin; Z79.51 Long term (current) use of inhaled steroids; Z79.899 Other long term (current) drug therapy
CPT/HCPCS: 36415; 71020; 71275; 80048; 80053; 82550; 82553; 83036; 83605; 83735; 83880; 84484; 85025; 85379; 85610; 85730; 87040; 87070; 87205; 93005; 93306; 94640; 94760

== ENCOUNTER 2017-04-29 12:46 | Inpatient (IN) | payer MEDICARE ==
--- NOTE | 2017-04-29 13:09 | ED ---
General Adult HPI - General Stated complaint: diff breathing Time Seen by Provider: 04/29/17 12:50 Source: RN notes reviewed - History of Present Illness Initial comments: This is an 86-year-old male who presents emergency Department with shortness of breath. Patient states approximately one week ago he was diagnosed with pneumonia and was in the hospital. Patient states he went home on Saturday felt pretty good but as the week and went on he felt worse and worse. Patient states is more more short of breath. Patient denies any chest pain or pressure. Patient denies any abdominal pain. Patient denies nausea vomiting diarrhea. Patient denies any diaphoresis. Patient denies any lightheadedness or dizziness. Patient denies any headache or numbness or weakness. Patient states he's had no recent fevers. Patient does not notice any increased leg edema or calf pain. - Related Data Home Medications Medication Instructions Recorded Confirmed Aspirin 81 mg PO DAILY 04/23/17 04/29/17 Budesonide 0.5 mg INHALATION RT-BID 04/23/17 04/29/17 Montelukast Sodium [Singulair] 10 mg PO HS 04/23/17 04/29/17 Vit C/E/Zn/Coppr/Lutein/Zeaxan 1 cap PO BID 04/23/17 04/29/17 [Preservision Areds 2 Softgel] Albuterol Nebulized [Ventolin 2.5 mg INHALATION RT-Q6H 04/29/17 04/29/17 Nebulized] Previous Rx's Medication Instructions Recorded Apixaban [Eliquis] 2.5 mg PO BID #60 tab 04/26/17 Levofloxacin [Levaquin] 500 mg PO DAILY #5 tab 04/26/17 Pantoprazole [Protonix] 40 mg PO AC-BRKFST #30 tab 04/26/17 Verapamil Sr [Isoptin Sr] 180 mg PO DAILY #30 tab 04/26/17 guaiFENesin [Mucinex] 1,200 mg PO Q12HR #0 tab 04/26/17 predniSONE 0 mg PO DIRECTED #60 tab 04/26/17 Allergies Allergy/AdvReac Type Severity Reaction Status Date / Time No Known Allergies Allergy Verified 04/29/17 13:38 Review of Systems ROS Statement: Those systems with pertinent positive or pertinent negative responses have been documented in the HPI. ROS Other: All systems not noted in ROS Statement are negative. Past Medical History Past Medical History: COPD, GI Bleed, Hearing Disorder / Deafness, Osteoarthritis (OA) Additional Past Medical History / Comment(s): sinus, tremors, 1984-"bleeding ulcer,pulmonary fibrosis,home 02 2 liters n/c, mac degeneration, "heart skips a beat", shingle 2008 or 2009 History of Any Multi-Drug Resistant Organisms: None Reported Past Surgical History: Appendectomy, Orthopedic Surgery, Tonsillectomy Additional Past Surgical History / Comment(s): egd/colonosocpy, lt knee sx, gregg cataracts-lens implants Past Anesthesia/Blood Transfusion Reactions: No Reported Reaction Additional Past Anesthesia/Blood Transfusion Reaction / Comment(s): blood transfusion in past- no reaction Past Psychological History: No Psychological Hx Reported Additional Psychological History / Comment(s): pt denies any depression or any thoughts of wanting to harm self. pt and his recently moved to [facility].( has dementia). no pets. has home 02 /concentrator, nebulizer, walker. pt served in the [employer] in [employer]. 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 Smoking Status: Former smoker Past Alcohol Use History: Rare Additional Past Alcohol Use History / Comment(s): started smoking at age 14 smoked 3 ppd, quit 1970 Past Drug Use History: None Reported - Past Family History Father Family Medical History: Coronary Artery Disease (CAD) Additional Family Medical History / Comment(s): aaa Mother Family Medical History: Congestive Heart Failure (CHF) Sister(s) Additional Family Medical History / Comment(s): depression Daughter(s) Additional Family Medical History / Comment(s): committed suicide General Exam - General Exam Comments Initial Comments: GENERAL: Patient is well-developed and well-nourished. Patient is nontoxic and well- hydrated and is in mild distress. ENT: Neck is soft and supple. No significant lymphadenopathy is noted. Oropharynx is clear. Moist mucous membranes. Neck has full range of motion without eliciting any pain. EYES: The sclera were anicteric and conjunctiva were pink and moist. Extraocular movements were intact and pupils were equal round and reactive to light. Eyelids were unremarkable. PULMONARY: Patient has crackles bilateral bases CARDIOVASCULAR: Patient is tachycardic at about 160 beats a minute and he is a irregular ABDOMEN: Soft and nontender with normal bowel sounds. No palpable organomegaly was noted. There is no palpable pulsatile mass. SKIN: Skin is clear with no lesions or rashes and otherwise unremarkable. NEUROLOGIC: Patient is alert and oriented x3. Cranial nerves II through XII are grossly intact. Motor and sensory are also intact. Normal speech, volume and content. Symmetrical smile. MUSCULOSKELETAL: Normal extremities with adequate strength and full range of motion. Scant edema bilaterally LYMPHATICS: No significant lymphadenopathy is noted PSYCHIATRIC: Normal psychiatric evaluation. Normal interpersonal interactions appears functionally intact in deals appropriately with others. No signs of depression. No signs of anxiety. Course Vital Signs 04/29/17 04/29/17 04/29/17 13:08 13:19 13:41 Temperature 97.0 F L Pulse Rate 170 H 145 H Pulse Rate [ 165 H Machine Icer ] Respiratory 22 20 Rate Blood Pressure 94/60 100/58 O2 Sat by Pulse 96 97 Oximetry 04/29/17 04/29/17 04/29/17 13:57 14:24 14:58 Temperature 97.0 F L Pulse Rate 160 H 165 H 165 H Pulse Rate [ Machine Icer ] Respiratory 20 22 22 Rate Blood Pressure 100/60 94/60 107/79 O2 Sat by Pulse 96 96 96 Oximetry 04/29/17 15:31 Temperature Pulse Rate 132 H Pulse Rate [ Machine Icer ] Respiratory 20 Rate Blood Pressure 122/61 O2 Sat by Pulse 97 Oximetry Medical Decision Making - Medical Decision Making EKG shows atrial fibrillation with rapid ventricular response at 171 bpm QRS is 124 QT interval is 264 QTC is 445. Chest x-ray shows pulmonary edema pulmonary fibrosis and possible left lower lobe pneumonia I gave the patient Cardizem drip at 5 mg per hour that did not slow the patient' s heart rate psychiatric the patient 0.5 digoxin IV and then I followed that up with a 300 mg of amiodarone over 1 hour that seemed to decrease the patient's heart rate to the patient was feeling considerably better at this time. I also started the patient on Levaquin for the possible left lower lobe pneumonia. I spoke with Dr. Briseno he was in agreement with this. I spoke with Dr. Stephen he agreed to admit the patient admitted the patient I wrote admitting orders I consult to cardiology and they continued the Cardizem drip on the floor - Lab Data Result diagrams: 04/29/17 13:10 04/29/17 13:10 Lab Results 04/29/17 04/29/17 04/29/17 Range/Units 13:10 13:10 13:10 WBC 15.0 H (3.8-10.6) k/uL RBC 4.16 L (4.30-5.90) m/uL Hgb 12.5 L (13.0-17.5) gm/dL Hct 38.6 L (39.0-53.0) % MCV 92.9 (80.0-100.0) fL MCH 30.2 (25.0-35.0) pg MCHC 32.5 (31.0-37.0) g/dL RDW 13.6 (11.5-15.5) % Plt Count 316 (150-450) k/uL Neutrophils % (Manual) 79.5 % Lymphocytes % (Manual) 13.0 % Monocytes % (Manual) 3.0 % Metamyelocytes % 0.5 % Myelocytes % 4.0 % Neutrophils # (Manual) 11.9 H (1.3-7.7) k/uL Lymphocytes # (Manual) 2.0 (1.0-4.8) k/uL Monocytes # (Manual) 0.5 (0-1.0) k/uL Nucleated RBCs 0 (0-0) /100 WBC Manual Slide Review Performed PT (9.0-12.0) sec INR (<1.1) APTT (22.0-30.0) sec Sodium 135 L (137-145) mmol/L Potassium 4.5 (3.5-5.1) mmol/L Chloride 103 (98-107) mmol/L Carbon Dioxide 23 (22-30) mmol/L Anion Gap 9 mmol/L BUN 46 H (9-20) mg/dL Creatinine 1.16 (0.66-1.25) mg/dL Est GFR (MDRD) Af Amer >60 (>60 ml/min/1.73 sqM) Est GFR (MDRD) Non-Af 60 (>60 ml/min/1.73 sqM) Glucose 129 H (74-99) mg/dL Plasma Lactic Acid Ashvin (0.7-2.0) mmol/L Calcium 8.3 L (8.4-10.2) mg/dL Magnesium 2.4 H (1.6-2.3) mg/dL Total Bilirubin 1.0 (0.2-1.3) mg/dL AST 25 (17-59) U/L ALT 25 (21-72) U/L Alkaline Phosphatase 93 (38-126) U/L Total Creatine Kinase 73 (55-170) U/L CK-MB (CK-2) 2.0 (0.0-2.4) ng/mL CK-MB (CK-2) Rel Index 2.7 Troponin I 0.032 (0.000-0.034) ng/mL NT-Pro-B Natriuret Pep pg/mL Total Protein 6.0 L (6.3-8.2) g/dL Albumin 2.9 L (3.5-5.0) g/dL 04/29/17 04/29/17 04/29/17 Range/Units 13:10 13:10 14:50 WBC (3.8-10.6) k/uL RBC (4.30-5.90) m/uL Hgb (13.0-17.5) gm/dL Hct (39.0-53.0) % MCV (80.0-100.0) fL MCH (25.0-35.0) pg MCHC (31.0-37.0) g/dL RDW (11.5-15.5) % Plt Count (150-450) k/uL Neutrophils % (Manual) % Lymphocytes % (Manual) % Monocytes % (Manual) % Metamyelocytes % % Myelocytes % % Neutrophils # (Manual) (1.3-7.7) k/uL Lymphocytes # (Manual) (1.0-4.8) k/uL Monocytes # (Manual) (0-1.0) k/uL Nucleated RBCs (0-0) /100 WBC Manual Slide Review PT 13.7 H (9.0-12.0) sec INR 1.4 (<1.1) APTT 24.7 (22.0-30.0) sec Sodium (137-145) mmol/L Potassium (3.5-5.1) mmol/L Chloride (98-107) mmol/L Carbon Dioxide (22-30) mmol/L Anion Gap mmol/L BUN (9-20) mg/dL Creatinine (0.66-1.25) mg/dL Est GFR (MDRD) Af Amer (>60 ml/min/1.73 sqM) Est GFR (MDRD) Non-Af (>60 ml/min/1.73 sqM) Glucose (74-99) mg/dL Plasma Lactic Acid Ashvin 2.0 (0.7-2.0) mmol/L Calcium (8.4-10.2) mg/dL Magnesium (1.6-2.3) mg/dL Total Bilirubin (0.2-1.3) mg/dL AST (17-59) U/L ALT (21-72) U/L Alkaline Phosphatase (38-126) U/L Total Creatine Kinase (55-170) U/L CK-MB (CK-2) (0.0-2.4) ng/mL CK-MB (CK-2) Rel Index Troponin I (0.000-0.034) ng/mL NT-Pro-B Natriuret Pep 99766 pg/mL Total Protein (6.3-8.2) g/dL Albumin (3.5-5.0) g/dL Critical Care Time Critical Care Time: Yes Total Critical Care Time: 45 Disposition Clinical Impression: Atrial fibrillation with rapid ventricular response, Pulmonary edema, Pneumonia Disposition: ADMITTED IP TO THIS HOSP Referrals: Pablo Stephen MD [Primary Care Provider] - 1-2 days Time of Disposition: 15:47
[2017-04-29] MEDS ORDERED: DILTIAZEM 125 MG in SODIUM CHLORIDE 0.9% 100 ML IV ONE (13:15)
[2017-04-29 13:31] LABS: INR 1.4 (<1.1); Partial Thromboplastin Time 24.7 sec (22.0-30.0); Prothrombin Time 13.7 sec (9.0-12.0)
[2017-04-29 13:32] LABS: CH 29.9; CHCM 32.4; HCT 38.6 % (39.0-53.0); HDW 2.34; HGB 12.5 gm/dL (13.0-17.5); Immature Gran Flag Slight; MCH 30.2 pg (25.0-35.0); MCHC 32.5 g/dL (31.0-37.0); MCV 92.9 fL (80.0-100.0); Mean Platelet Volume 7.6; RBC 4.16 m/uL (4.30-5.90); RDW 13.6 % (11.5-15.5); WBC (Perox) 15.71
--- NOTE | 2017-04-29 13:33 | XR ---
EXAMINATION TYPE: XR chest 2V DATE OF EXAM: 04/29/2017 1:23 PM COMPARISON: 04/23/2017 HISTORY: Chest pain TECHNIQUE: Frontal and lateral views of the chest are obtained. FINDINGS: There is extensive interstitial and nodular infiltrates throughout the lungs. Pulmonary va sculature is difficult to evaluate because of the extensive lung disease. There is mild blunting cost ophrenic angles. Heart is enlarged. Thoracic aorta is atheromatous. There is osteopenia. IMPRESSION: Advanced pulmonary fibrotic changes. Heart failure cannot be excluded. There is probably increasing infiltrate in the left lung compared to last exam that suggests some degree of acute pneu monia.
[2017-04-29 13:34] LABS: ALT 25 U/L (21-72); AST 25 U/L (17-59); Alkaline Phosphatase 93 U/L (38-126); Anion Gap 9 mmol/L; Blood Urea Nitrogen 46 mg/dL (9-20); Calcium 8.3 mg/dL (8.4-10.2); Carbon Dioxide 23 mmol/L (22-30); Chloride 103 mmol/L (98-107); Glucose 129 mg/dL (74-99); Magnesium 2.4 mg/dL (1.6-2.3); Non-African American GFR(MDRD) 60 (>60 ml/min/1.73 sqM); Potassium 4.5 mmol/L (3.5-5.1); Sodium 135 mmol/L (137-145)
[2017-04-29 14:00] LABS: Troponin I 0.032 ng/mL (0.000-0.034)
[2017-04-29 14:16] LABS: Add Differential Manual Differential
[2017-04-29 14:20] LABS: Manual Review Performed; Metamyelocytes % 0.5 %; Nucleated Red Blood Cells 0 /100 WBC (0-0); Total Cells Counted 200
[2017-04-29] MEDS ORDERED: DIGOXIN 250 MCG/ML 2 ML AMP IVP STA (14:43)
[2017-04-29] MEDS ORDERED: DEXTROSE 5% IN WATER 250 ML with AMIODARONE 300 MG IV ONE (14:44)
[2017-04-29] MEDS ORDERED: LEVOFLOXACIN 750MG-D5W PMX 750 MG in DEXTROSE/WATER 1 150ML.BAG IVPB STA (15:32)
[2017-04-29] MEDS ORDERED: NITROGLYCERIN SL TABS 0.4 MG TAB SUBLINGUAL PRN (15:49)
[2017-04-29 19:35] LABS: Creatine Kinase MB 1.8 ng/mL (0.0-2.4); Troponin I 0.031 ng/mL (0.000-0.034)
[2017-04-29] MEDS: BUDESONIDE 0.5 MG/2 ML NEBU INHALATION SCH (19:46)
[2017-04-29] MEDS: ALBUTEROL NEBULIZED 2.5 MG/3 ML INHALATION SCH (19:56)
[2017-04-29] MEDS ORDERED: ALBUTEROL NEBULIZED 2.5 MG/3 ML INHALATION SCH (20:00)
[2017-04-29] MEDS: MONTELUKAST 10 MG TAB PO SCH (20:08)
[2017-04-29] MEDS: guaiFENesin 600 MG TABLET.ER PO SCH (20:08)
[2017-04-29] MEDS: APIXABAN 2.5 MG TABLET PO SCH (20:09)
[2017-04-30 01:16] LABS: Troponin I 0.027 ng/mL (0.000-0.034)
[2017-04-30 05:03] LABS: Cholesterol 136 mg/dL (<200); HDL Cholesterol 42 mg/dL (40-60); Triglycerides 94 mg/dL (<150)
[2017-04-30] MEDS: PANTOPRAZOLE 40 MG TABLET PO SCH (06:32)
[2017-04-30] MEDS: ALBUTEROL NEBULIZED 2.5 MG/3 ML INHALATION SCH ×4 (08:14→20:25)
[2017-04-30] MEDS: BUDESONIDE 0.5 MG/2 ML NEBU INHALATION SCH ×2 (08:14→20:25)
[2017-04-30] MEDS ORDERED: ASPIRIN 325 MG TAB PO SCH (09:00)
[2017-04-30] MEDS ORDERED: predniSONE 50 MG TAB PO ONE (09:00)
[2017-04-30] MEDS: guaiFENesin 600 MG TABLET.ER PO SCH ×2 (09:33→20:12)
[2017-04-30] MEDS: APIXABAN 2.5 MG TABLET PO SCH ×2 (09:34→20:11)
--- NOTE | 2017-04-30 09:58 | CONS ---
DATE OF CONSULTATION: 04/30/2017 CHIEF COMPLAINT: Cough and shortness of breath. Cardiology had been consulted because of atrial fibrillation with rapid ventricular rate. This is an 86-year-old gentleman with history of COPD, who was recently admitted to hospital with pneumonia. He comes back in complaining of shortness of breath and cough. He was found to be in atrial fibrillation with rapid ventricular rate for which cardiology had been consulted. He denies chest pain. The difficulty in breathing had improved since admission. On his initial presentation he was in A. fib with poorly controlled ventricular rate and was started on intravenous Cardizem with significant improvement in his heart rate. He is adequately anticoagulated with Eliquis 2.5 b.i.d. At the time of my evaluation, he appears comfortable at rest. He is on 3 liters of nasal O2, which he normally does at home. EKG shows A. fib with RVR. Cardiac enzymes have been negative. He had a CT scan of the chest on last admission that was negative for pulmonary embolism. He had an echocardiogram that showed normal LV systolic function without any evidence of pulmonary hypertension. PAST MEDICAL HISTORY: Significant for chronic atrial fibrillation, hypertension, COPD. Current medications include aspirin, Singulair, vitamin C, Ventolin, Eliquis, Levaquin, Protonix, Isoptin, Mucinex and prednisone. ALLERGIES: There are no known drug allergies. FAMILY HISTORY: Negative for premature coronary artery disease. SOCIAL HISTORY: Negative for current smoking, EtOH abuse or drug abuse. REVIEW OF SYSTEMS: HEENT: Unremarkable. CARDIAC: As described above. RESPIRATORY: As described above. GI: Negative. GENITOURINARY: Negative. ALLERGY/IMMUNOLOGY: Negative. MUSCULOSKELETAL: Significant for arthritis. PSYCHOSOCIAL: Negative. DERMATOLOGY: Negative. CONSTITUTIONAL: Negative. ONCOLOGICAL: Negative. The rest of the system review is not relevant. PAST SURGICAL HISTORY: Significant for left knee surgery, bilateral cataract surgery. On exam, heart rate is 88 beats per minute, blood pressure ( ), respiratory rate 20, O2 sat is 92% on 3 L. There is no jugular venous distention. Chest exam reveals occasional rhonchi with diminished air entry. Heart exam reveals first and second heart sounds. No gallop. Systolic murmur in the left lower sternal border. Abdomen is soft. Exam of the extremities did not reveal any edema. Peripheral pulses are palpable. Labs show a hemoglobin of 12.5, platelet count is 316. Creatinine is 1. Potassium is 4.5. Three sets of tropes are negative. BNP is 20,700. LDL cholesterol is 75. EKG shows A. fib with RVR with a heart rate of 170 beats per minute. ASSESSMENT: 1. Chronic atrial fibrillation with poorly controlled ventricular rate. 2. Pneumonia. 3. Hypertension. PLAN: I am going to start the patient on Tenormin 25 mg b.i.d. Once the heart rate is better controlled will stop the IV Cardizem. I reviewed information from recent admission including CT scan, echo, labs and EKGs.
[2017-04-30] MEDS ORDERED: ATENOLOL 25 MG TAB PO SCH (10:00)
[2017-04-30 11:50] VITALS: BMI 21.1
[2017-04-30] MEDS ORDERED: guaiFENesin-Coden 100-10MG/5ML 10 ML CUP PO PRN (11:51)
--- NOTE | 2017-04-30 11:53 | P.CNPUL ---
History of Present Illness Consult date: 04/30/17 Reason for consult: hypoxemia, pulmonary fibrosis Chief complaint: Shortness of breath, cough History of present illness: This is an 86-year-old male with known pulmonary fibrosis who was admitted through the emergency department for cough and shortness of breath. The patient was recently admitted and discharged for similar complaints. The patient states he was feeling good the day of discharged however his breathing began to worsen over the next 24-48 hours. The patient states he was up coughing all night and hasn't been able to sleep in days. He is unable to expectorate his sputum. The patient was diagnosed with pulmonary fibrosis 2 years ago. He has not been treated for this. He does have breathing treatments at home. He also complains of difficulty with swallowing. He denies fevers at home. He did have chills. The patient has had poor appetite as of late. Review of Systems All systems: negative Past Medical History Past Medical History: COPD, GI Bleed, Hearing Disorder / Deafness, Osteoarthritis (OA) Additional Past Medical History / Comment(s): sinus, tremors, 1984-"bleeding ulcer,pulmonary fibrosis,home 02 2 liters n/c, mac degeneration, "heart skips a beat", shingle 2008 or 2009 History of Any Multi-Drug Resistant Organisms: None Reported Past Surgical History: Appendectomy, Orthopedic Surgery, Tonsillectomy Additional Past Surgical History / Comment(s): egd/colonosocpy, lt knee sx, gregg cataracts-lens implants Past Anesthesia/Blood Transfusion Reactions: No Reported Reaction Additional Past Anesthesia/Blood Transfusion Reaction / Comment(s): blood transfusion in past- no reaction Past Psychological History: No Psychological Hx Reported Additional Psychological History / Comment(s): pt denies any depression or any thoughts of wanting to harm self. pt and his recently moved to [facility].( has dementia). no pets. has home 02 /concentrator, nebulizer, walker. pt served in the [employer] in [employer]. 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 Smoking Status: Former smoker Past Alcohol Use History: Rare Additional Past Alcohol Use History / Comment(s): started smoking at age 14 smoked 3 ppd, quit 1969 Past Drug Use History: None Reported - Past Family History Father Family Medical History: Coronary Artery Disease (CAD) Additional Family Medical History / Comment(s): aaa Mother Family Medical History: Congestive Heart Failure (CHF) Sister(s) Additional Family Medical History / Comment(s): depression Daughter(s) Additional Family Medical History / Comment(s): committed suicide Medications and Allergies Home Medications Medication Instructions Recorded Confirmed Type Aspirin 81 mg PO DAILY 04/23/17 04/29/17 History Budesonide 0.5 mg INHALATION RT-BID 04/23/17 04/29/17 History Montelukast Sodium [Singulair] 10 mg PO HS 04/23/17 04/29/17 History Vit C/E/Zn/Coppr/Lutein/Zeaxan 1 cap PO BID 04/23/17 04/29/17 History [Preservision Areds 2 Softgel] Albuterol Nebulized [Ventolin 2.5 mg INHALATION RT-Q6H 04/29/17 04/29/17 History Nebulized] Allergies Allergy/AdvReac Type Severity Reaction Status Date / Time No Known Allergies Allergy Verified 04/29/17 13:38 Physical Exam Osteopathic Statement: *. No significant issues noted on an osteopathic structural exam other than those noted in the History and Physical/Consult. Vitals: Vital Signs Temp Pulse Pulse Pulse Resp BP BP 04/30/17 11:37 88 04/30/17 08:31 88 04/30/17 08:14 88 04/30/17 07:49 96.9 F L 104 H 20 112/56 04/30/17 03:44 80 14 04/30/17 03:43 80 14 108/61 04/30/17 00:00 87 16 04/29/17 23:40 87 16 109/55 04/29/17 20:03 89 04/29/17 19:50 89 04/29/17 19:30 69 16 04/29/17 19:22 96.7 F L 69 18 111/59 04/29/17 16:19 97.0 F L 103 H 20 115/58 04/29/17 15:31 132 H 20 122/61 04/29/17 14:58 165 H 22 107/79 04/29/17 14:24 97.0 F L 165 H 22 94/60 04/29/17 13:57 160 H 20 100/60 04/29/17 13:41 145 H 20 100/58 04/29/17 13:19 165 H 04/29/17 13:08 97.0 F L 170 H 22 94/60 Pulse Ox 04/30/17 11:37 04/30/17 08:31 04/30/17 08:14 04/30/17 07:49 92 L 04/30/17 03:44 04/30/17 03:43 93 L 04/30/17 00:00 04/29/17 23:40 95 04/29/17 20:03 04/29/17 19:50 95 04/29/17 19:30 04/29/17 19:22 100 04/29/17 16:19 96 04/29/17 15:31 97 04/29/17 14:58 96 04/29/17 14:24 96 04/29/17 13:57 96 04/29/17 13:41 97 04/29/17 13:19 04/29/17 13:08 96 Intake and Output 04/29/17 04/30/17 04/30/17 22:59 06:59 14:59 Intake Total 240 945 120 Output Total 400 725 Balance -160 220 120 Intake: IV 900 0.9 NS 900 Intake, IV Titration 45 Amount Diltiazem 125 mg In 45 Sodium Chloride 0.9% 100 ml @ 5 MG/HR 5 mls/hr IV .Q24H ONE Rx#:[id number] Oral 240 120 Output: Urine 400 725 Other: # Voids 1 # Bowel Movements 0 Weight 68.039 kg 70.6 kg Gen.: Patient is alert and oriented 3, no acute distress Cardiovascular: Regular rate and rhythm, S1/S2 Lungs: Coarse breath sounds bilaterally Abdomen: Soft nontender nondistended positive bowel sounds Extremities: Right greater than left lower extremity edema Results - Laboratory Findings CBC and BMP: 04/29/17 13:10 04/29/17 13:10 PT/INR, D-dimer PT 13.7 sec (9.0-12.0) H 04/29/17 13:10 INR 1.4 (<1.1) 04/29/17 13:10 Abnormal lab findings: Abnormal Labs 04/29/17 04/29/17 04/29/17 13:10 13:10 13:10 WBC 15.0 H RBC 4.16 L Hgb 12.5 L Hct 38.6 L Neutrophils # (Manual) 11.9 H PT 13.7 H Sodium 135 L BUN 46 H Glucose 129 H Calcium 8.3 L Magnesium 2.4 H Total Creatine Kinase Total Protein 6.0 L Albumin 2.9 L 04/30/17 00:25 WBC RBC Hgb Hct Neutrophils # (Manual) PT Sodium BUN Glucose Calcium Magnesium Total Creatine Kinase 49 L Total Protein Albumin - Diagnostic Findings Chest x-ray: report reviewed, image reviewed Assessment and Plan Plan: Acute on chronic hypoxic respiratory failure Left basilar pneumonia Severe IPF Leukocytosis, SIRS, sepsis Acute exacerbation of COPD Atrial fibrillation with RVR History of tobacco abuse next line anemia Probable underlying pulmonary hypertension Protein calorie malnutrition Pulmonary cachexia Enlarged hilar lymph nodes Essential tremors Dysphagia O2 to maintain saturation greater than equal to 88% Steroid taper Bronchodilators Pulmicort Sputum culture Singulair Mucinex Chest PT Flutter therapy Consult speech therapy for swallow evaluation Antitussives GI and DVT prophylaxis: Eliquis and Protonix Incentive spirometry and pulmonary hygiene Patient follows with Dr. ABELINO Lockwood in the office Thank you for this consultation we'll continue to follow along
[2017-04-30] MEDS: VERAPAMIL SR 180 MG TABLET.ER PO SCH (12:24)
[2017-04-30] MEDS ORDERED: LEVOFLOXACIN 750MG-D5W PMX 750 MG in DEXTROSE/WATER 1 150ML.BAG IVPB SCH (16:00)
--- NOTE | 2017-04-30 16:18 | P.HPIM ---
History of Present Illness H&P Date: 04/29/17 Chief Complaint: Acute respiratory failure, advanced pulmonary fibrosis, A. fib with RVR, di 86-year-old male one of my office patient of known for long time was in the hospital this past week admitted by Dr. Diez for worsening shortness of breath cough and wheezes was diagnosed with respiratory failure, bilateral pneumonia, COPD exacerbation, anorexia, A. fib, pulmonary hypertension. Patient has done well was discharged home on Saturday feeling decent to return to the emergency department on 04/29/2017 with severe shortness of breath dyspnea hypoxia inspiratory expiratory wheezes severe debilitation severe drain not been able to ambulate walk and function. Surprisingly found to be in acute respiratory failure with severe hypoxia inspiratory expiratory wheezes bilateral infiltrate worsening pulmonary fibrosis and severe rapid ventricular response with A. fib pulse rates running 160 beats per minutes at the time. Was started on Cardizem drip did not make any different amiodarone IV was giving 1 time [place] digoxin IV was giving. Patient was hospitalized consult cardiology and pulmonary. Review of Systems Constitutional: Reports anorexia, Reports chronic pain, Reports fatigue, Reports lethargy, Reports malaise, Reports weakness, Reports weight loss, Denies as per HPI, Denies chills, Denies chronic headaches, Denies daytime sleepiness, Denies fever, Denies night sweats, Denies poor appetite, Denies sweats, Denies weight gain Eyes: bilateral as per HPI Ears: bilateral: decreased hearing Ears, nose, mouth and throat: Reports nasal congestion, Reports sinus pain, Reports sinus pressure, Denies as per HPI, Denies ant. neck pain, Denies bleeding gums, Denies dental pain, Denies dysphagia, Denies epistaxis, Denies headache, Denies hoarseness, Denies mouth pain, Denies nasal discharge, Denies neck fullness/pressure, Denies neck lump, Denies nose pain, Denies odynophagia, Denies post-nasal drip, Denies swelling in mouth, Denies swelling in throat, Denies sore throat, Denies vertigo, Denies voice changes Cardiovascular: Reports decreased exercise tolerance, Reports edema, Reports high blood pressure, Reports irregular heart beat, Reports leg edema, Reports orthopnea, Reports paroxysmal nocturnal dyspnea, Reports rapid heart beat, Denies as per HPI, Denies chest pain, Denies claudication, Denies dyspnea on exertion, Denies lightheadedness, Denies palpitations, Denies phlebitis, Denies shortness of breath, Denies syncope Respiratory: Reports congestion, Reports cough, Reports cough with sputum, Reports dyspnea, Reports pain on inspiration, Reports respiratory infections, Reports wheezing, Denies as per HPI, Denies excessive sputum, Denies hemoptysis , Denies home oxygen, Denies pain, Denies pleurisy, Denies sleep apnea, Denies snoring Gastrointestinal: Reports bloating, Reports dyspepsia, Reports indigestion, Reports loss of appetite, Reports nausea, Denies as per HPI, Denies abdominal pain, Denies belching, Denies BRBPR, Denies change in bowel habits, Denies coffee ground emesis, Denies constipation, Denies diarrhea, Denies early satiety , Denies excessive gas, Denies heartburn, Denies hematemesis, Denies hematochezia, Denies jaundice, Denies lactose intolerance, Denies melena, Denies vomiting Genitourinary: Reports urinary frequency, Reports urinary hesitancy, Denies as per HPI, Denies decreased libido, Denies difficulties fathering child, Denies discharge, Denies dysuria, Denies erectile dysfunction, Denies flank pain, Denies genital pain, Denies genital sores, Denies hematuria, Denies impotence, Denies incontinence, Denies kidney stones, Denies nocturia, Denies polyuria, Denies testicular lump, Denies testicular pain, Denies urinary retention Musculoskeletal: Reports frequent falls, Reports limitation of motion, Reports low back pain, Reports muscle cramps, Reports muscle weakness, Reports myalgias , Reports neck pain, Reports neck stiffness, Denies as per HPI, Denies arm numbness/tingling, Denies atrophy, Denies fractures, Denies gait dysfunction, Denies hot joints, Denies leg numbness/tingling, Denies loss of height, Denies morning stiffness, Denies prior amputations, Denies redness of joints, Denies shooting arm pain, Denies shooting leg pain Musculoskeletal: bilateral: ankle pain Integumentary: Reports pruritus, Reports rash, Denies as per HPI, Denies acne, Denies boils, Denies brittle nails, Denies change in hair/nails, Denies color changes, Denies darkening of skin, Denies depigmentation, Denies dryness, Denies foot/leg ulcers, Denies growths, Denies hirsutism, Denies lesions, Denies onychomycosis, Denies sores, Denies striae, Denies unusual bruising, Denies wounds Neurological: Reports aphasia, Reports ataxia, Reports balance difficulties, Reports lack of coordination, Reports paresthesias, Reports syncope, Reports tingling, Reports weakness, Denies as per HPI, Denies burning pain, Denies change in mentation, Denies change in smell/taste, Denies change in speech, Denies confusion, Denies convulsions, Denies double vision, Denies gait dysfunction, Denies head injury, Denies headaches, Denies hearing difficulties, Denies loss of vision, Denies memory loss, Denies migraines, Denies motor disturbance, Denies numbness, Denies paralysis, Denies seizures, Denies sensory deficit, Denies spasticity, Denies tic, Denies transient paralysis, Denies tremors, Denies vertigo, Denies visual changes Psychiatric: Reports anhedonia, Reports anxiety, Reports depression, Reports mood swings, Reports sadness/tearfulness, Reports sleep disturbances, Denies as per HPI, Denies anxiety attacks, Denies change in appetite, Denies change in libido, Denies change in sleep habits, Denies confusion, Denies difficulty concentrating, Denies disorientation, Denies hallucinations, Denies hopelessness , Denies hypersomnia, Denies insomnia, Denies irritability, Denies memory loss, Denies paranoia, Denies suicidal ideation Endocrine: Reports cold intolerance, Reports fatigue, Denies as per HPI, Denies deepening of the voice, Denies excessive sweating, Denies excessive thirst, Denies flushing, Denies heat intolerance, Denies high blood sugars, Denies increase in ring/shoe/hat size, Denies low blood sugars, Denies nocturia, Denies palpitations, Denies polydipsia, Denies polyphagia, Denies polyuria, Denies proptosis, Denies recent glucocorticoid use, Denies thyroid mass, Denies weight change Hematologic/Lymphatic: Reports easy bruising, Denies as per HPI, Denies easy bleeding, Denies lymphadenopathy, Denies lymphedema, Denies thrombophilia Allergic/Immunologic: Denies as per HPI, Denies allergic rhinitis, Denies anaphylaxis, Denies angioedema, Denies gluten intolerance, Denies persistent infections, Denies seasonal allergies, Denies urticaria, Denies wheezing Past Medical History Past Medical History: COPD, GI Bleed, Hearing Disorder / Deafness, Osteoarthritis (OA) Additional Past Medical History / Comment(s): sinus, tremors, 1984-"bleeding ulcer,pulmonary fibrosis,home 02 2 liters n/c, mac degeneration, "heart skips a beat", shingle 2008 or 2009 History of Any Multi-Drug Resistant Organisms: None Reported Past Surgical History: Appendectomy, Orthopedic Surgery, Tonsillectomy Additional Past Surgical History / Comment(s): egd/colonosocpy, lt knee sx, gregg cataracts-lens implants Past Anesthesia/Blood Transfusion Reactions: No Reported Reaction Additional Past Anesthesia/Blood Transfusion Reaction / Comment(s): blood transfusion in past- no reaction Past Psychological History: No Psychological Hx Reported Additional Psychological History / Comment(s): pt denies any depression or any thoughts of wanting to harm self. pt and his recently moved to [facility] [place].( has dementia). no pets. has home 02 /concentrator, nebulizer, walker. pt served in the [employer] in [employer]. 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 Smoking Status: Former smoker Past Alcohol Use History: Rare Additional Past Alcohol Use History / Comment(s): started smoking at age 14 smoked 3 ppd, quit 1969 Past Drug Use History: None Reported - Past Family History Father Family Medical History: Coronary Artery Disease (CAD) Additional Family Medical History / Comment(s): aaa Mother Family Medical History: Congestive Heart Failure (CHF) Sister(s) Additional Family Medical History / Comment(s): depression Daughter(s) Additional Family Medical History / Comment(s): committed suicide Medications and Allergies Home Medications Medication Instructions Recorded Confirmed Type Aspirin 81 mg PO DAILY 04/23/17 04/29/17 History Budesonide 0.5 mg INHALATION RT-BID 04/23/17 04/29/17 History Montelukast Sodium [Singulair] 10 mg PO HS 04/23/17 04/29/17 History Vit C/E/Zn/Coppr/Lutein/Zeaxan 1 cap PO BID 04/23/17 04/29/17 History [Preservision Areds 2 Softgel] Albuterol Nebulized [Ventolin 2.5 mg INHALATION RT-Q6H 04/29/17 04/29/17 History Nebulized] Allergies Allergy/AdvReac Type Severity Reaction Status Date / Time Beta-Blockers AdvReac Rash/Hives Verified 04/30/17 15:12 (Beta-Adrenergic Bloc Physical Exam Vitals: Vital Signs Temp Pulse Pulse Pulse Resp BP BP 04/30/17 11:50 92 04/30/17 11:37 88 04/30/17 11:10 97.2 F L 100 20 142/63 04/30/17 08:31 88 04/30/17 08:14 88 04/30/17 07:49 96.9 F L 104 H 20 112/56 04/30/17 03:44 80 14 04/30/17 03:43 80 14 108/61 04/30/17 00:00 87 16 04/29/17 23:40 87 16 109/55 04/29/17 20:03 89 04/29/17 19:50 89 04/29/17 19:30 69 16 04/29/17 19:22 96.7 F L 69 18 111/59 04/29/17 16:19 97.0 F L 103 H 20 115/58 Pulse Ox 04/30/17 11:50 04/30/17 11:37 04/30/17 11:10 93 L 04/30/17 08:31 04/30/17 08:14 04/30/17 07:49 92 L 04/30/17 03:44 04/30/17 03:43 93 L 04/30/17 00:00 04/29/17 23:40 95 04/29/17 20:03 04/29/17 19:50 95 04/29/17 19:30 04/29/17 19:22 100 04/29/17 16:19 96 Intake and Output 04/30/17 04/30/17 04/30/17 06:59 14:59 22:59 Intake Total 945 420 Output Total 725 Balance 220 420 Intake: IV 900 160 0.9 NS 900 160 Intake, IV Titration 45 40 Amount Diltiazem 125 mg In 45 40 Sodium Chloride 0.9% 100 ml @ 5 MG/HR 5 mls/hr IV .Q24H ONE Rx#:[id number] Oral 220 Output: Urine 725 Other: Weight 70.6 kg 70.6 kg Patient Weight 05/01/17 06:59 Weight 70.6 kg - Constitutional General appearance: no average body habitus, cooperative, disheveled, mild distress, no morbidly obese, no no acute distress, no obese, no severe distress , thin - EENT Eyes: abnormal pupil, no anicteric sclerae, no disc margins sharp, no edentulous , no EOMI, no PERRLA, no fundus normal, no photophobia, no dentition normal, no poor dentition, no ptosis, no scleral icterus, normal appearance ENT: no hard of hearing, no hearing grossly normal, no NA/AT, normal oropharynx , no other, pharyngeal erythema, no thrush, no tonsillar exudates, no tonsillar swelling Ears: bilateral: normal - Neck Neck: no lymphadenopathy, normal ROM, no other, no rigidity, no stridor, no thyromegaly Carotids: bilateral: upstroke normal, upstroke delayed Thyroid: bilateral: normal size - Respiratory Respiratory: bilateral: diminished, dullness, rales, rhonchi, wheezing, prolonged expiration, prolonged inspiration - Cardiovascular A. fib with RVR with a rapid pulse running around 120 beats per minutes. Rhythm: regular Heart sounds: normal: S1, S2 Abnormal Heart Sounds: systolic murmur, S3 Gallop - Gastrointestinal General gastrointestinal: no absent bowel sounds, decreased bowel sounds, no distended, no hepatomegaly, no hyperactive bowel sounds, normal bowel sounds, no organomegaly, no rigid, no scaphoid, soft, no splenomegaly, no tenderness, no umbilical hernia, no ventral hernia - Integumentary Integumentary: no calor, no cellulitis, no cyanotic, no decreased turgor, no flushed, no jaundiced, normal, no normal turgor, pale, rash, no ulcer - Neurologic Neurologic: CNII-XII intact - Musculoskeletal Musculoskeletal: gait normal, generalized weakness, no strength equal bilaterally, no right sided weakness, no left sided weakness - Psychiatric Psychiatric: A&O x's 3, appropriate affect Results CBC & Chem 7: 04/29/17 13:10 04/29/17 13:10 Labs: Abnormal Lab Results - Last 24 Hours (Table) 04/30/17 Range/Units 00:25 Total Creatine Kinase 49 L (55-170) U/L Thrombosis Risk Factor Assmnt - DVT/VTE Prophylaxis DVT/VTE Prophylaxis: Pharmacologic Prophylaxis ordered, Mechanical Prophylaxis ordered - Choose All That Apply Each Risk Factor Represents 3 Points: Age 75 years or older Thrombosis Risk Factor Assessment Total Risk Factor Score: 3 Thrombosis Risk Factor Assessment Level: Moderate Risk Assessment and Plan Plan: 1 acute respiratory failure combination of A. fib with RVR, diastolic heart failure, fluid overload, severe progressive pulmonary fibrosis and bilateral pneumonia. Continue to treat underlying disease and watch his symptoms continue O2 and if needed BiPAP patient wished not to be resuscitated or placed on any mechanical ventilation. 2 A. fib with RVR: Despite using Cardizem drip patient had responded to amiodarone and digoxin. Amiodarone is not a good choice on the short on the longer on with his pulmonary fibrosis with try to control the symptom with better beta sana especially when the pulse ox improve if possible calcium channel sana is better choice than beta sana especially with his COPD as well. 3 COPD with exacerbation: Continue patient on steroid continue Pulmicort and DuoNeb for now and try to switch his albuterol to Xopenex if possible. 4 severe progressive pulmonary fibrosis: Patient has been on steroid his comorbidity and comorbid mortality is very high currently and full explanation to him and the family was done today. 5 pulmonary hypertension: Continue patient on diuretics along with calcium channel sana. 6 bilateral pneumonia: Patient was sent home on Levaquin 500 milligrams daily for total of 5 days. 7 GI bleed and bleeding ulcer in the past. Patient has been on PPI will continue omeprazole or pantoprazole. 8 BPH: Continue to watch for any urinary retention. 9 pulmonary cachexia: We'll continue the higher protein and supportive care no criteria for TPN at this point. 10 GI prophylaxis: Patient be on pantoprazole. 11 DVT prophylaxis: Patient will be on heparin subcutaneous. CODE STATUS: DO NOT RESUSCITATE. Family meeting: Had long discussion with patient his daughter and his fully informed and answer all the question about the severely progressive pulmonary fibrosis and his advanced morbidity with his current problem. All agree on hospice care that patient has not been able to go home with his debility to weight is decision either to send him to senior care rehabilitation and furthermore to hospice or to the hospice house from here if is agreeable. precision printing worker was consulted will continue current medical management is more stable then we execute the plan.
[2017-04-30] MEDS: MONTELUKAST 10 MG TAB PO SCH (20:12)
[2017-05-01 05:55] LABS: CH 29.7; CHCM 30.7; HCT 40.2 % (39.0-53.0); HDW 2.14; HGB 12.3 gm/dL (13.0-17.5); Hypochromasia Slight; MCH 29.7 pg (25.0-35.0); MCHC 30.6 g/dL (31.0-37.0); MCV 97.1 fL (80.0-100.0); Mean Platelet Volume 7.7; RBC 4.14 m/uL (4.30-5.90); RDW 13.8 % (11.5-15.5); WBC 15.1 k/uL (3.8-10.6)
[2017-05-01 06:14] LABS: Anion Gap 4 mmol/L; Blood Urea Nitrogen 30 mg/dL (9-20); Calcium 8.2 mg/dL (8.4-10.2); Carbon Dioxide 30 mmol/L (22-30); Chloride 102 mmol/L (98-107); Glucose 104 mg/dL (74-99); Non-African American GFR(MDRD) >60 (>60 ml/min/1.73 sqM); Potassium 5.4 mmol/L (3.5-5.1); Sodium 136 mmol/L (137-145)
[2017-05-01] MEDS: PANTOPRAZOLE 40 MG TABLET PO SCH (06:34)
[2017-05-01] MEDS: BUDESONIDE 0.5 MG/2 ML NEBU INHALATION SCH (08:56)
[2017-05-01] MEDS: ALBUTEROL NEBULIZED 2.5 MG/3 ML INHALATION SCH ×2 (08:56→11:57)
[2017-05-01] MEDS ORDERED: ASPIRIN 81 MG CHEW PO SCH (09:00)
[2017-05-01] MEDS ORDERED: predniSONE 20 MG TAB PO SCH (09:00)
[2017-05-01] MEDS: guaiFENesin 600 MG TABLET.ER PO SCH (10:10)
[2017-05-01] MEDS: VERAPAMIL SR 180 MG TABLET.ER PO SCH (10:10)
[2017-05-01] MEDS: APIXABAN 2.5 MG TABLET PO SCH (10:11)
--- NOTE | 2017-05-01 12:50 | P.DS ---
Providers Date of admission: 04/29/17 15:54 Expected date of discharge: 05/01/17 Attending physician: Pablo Stephen Consults: 04/29/17 15:49 Consult Physician Urgent Consulting Provider: [facility] Reason/Comments: A. fib with rapid ventricular response Do you want consulting provider notified?: Yes 04/29/17 15:58 Consult Physician Urgent Consulting Provider: Berto Lockwood Consult Reason/Comments: Pulmonary fibrosis Do you want consulting provider notified?: Yes Primary care physician: Pablo Stephen [facility] Course: 86-year-old male one of my office patient of known for long time was in the hospital this past week admitted by Dr. Diez for worsening shortness of breath cough and wheezes was diagnosed with respiratory failure, bilateral pneumonia, COPD exacerbation, anorexia, A. fib, pulmonary hypertension. Patient has done well was discharged home on Saturday feeling decent to return to the emergency department on 04/29/2017 with severe shortness of breath dyspnea hypoxia inspiratory expiratory wheezes severe debilitation severe drain not been able to ambulate walk and function. Surprisingly found to be in acute respiratory failure with severe hypoxia inspiratory expiratory wheezes bilateral infiltrate worsening pulmonary fibrosis and severe rapid ventricular response with A. fib pulse rates running 160 beats per minutes at the time. Was started on Cardizem drip did not make any different amiodarone IV was giving 1 time [place] digoxin IV was giving. Patient was hospitalized consult cardiology and pulmonary. 05/01: Patient has been seen and followed by Dr. Pascual as well as Dr. Martinez from cardiology. Speech therapy has recommended avoid straw, upright positioning and small bites and sips. White count remains high at 15.1. Potassium is 5.4. Patient will be started on oral Lasix without potassium supplement. Patient is being prepared for discharge to the [facility] today in stable condition. Discharge Diagnoses: 1 acute respiratory distress due to a combination of A. fib with RVR, chronic diastolic heart failure, fluid overload, severe progressive pulmonary fibrosis and bilateral pneumonia. 2 A. fib with RVR with paroxysmal atrial fibrillation 3 COPD with exacerbation 4 severe progressive pulmonary fibrosis 5 bilateral pneumonia 6 GI bleed and bleeding ulcer in the past. 7 BPH 8 pulmonary cachexia with severe protein calorie malnutrition Discharge plan: [facility] Impression and plan of care have been directed as dictated by the signing physician. Natasha Suárez nurse practitioner acting as scribe for signing physician. Patient Condition at Discharge: Stable Plan - Discharge Summary New Discharge Prescriptions: New Atropine Ophth Soln 1% 5Ml [Isopto Atropine 1% 5Ml] 2 drops PO Q4HR PRN #1 bottle PRN Reason: Secretions LORazepam ORAL CONC [Ativan Intensol] 2 mg PO Q4H PRN #30 ml PRN Reason: Anxiety MORPHINE ORAL SOLN 20mg/mL [Roxanol Oral Soln Conc 20MG/ML] 5 mg PO Q4H PRN # 30 ml PRN Reason: Pain Furosemide [Lasix] 20 mg PO DAILY #30 tab Continue Montelukast Sodium [Singulair] 10 mg PO HS Budesonide 0.5 mg INHALATION RT-BID Aspirin 81 mg PO DAILY Vit C/E/Zn/Coppr/Lutein/Zeaxan [Preservision Areds 2 Softgel] 1 cap PO BID guaiFENesin [Mucinex] 1,200 mg PO Q12HR #0 tab Levofloxacin [Levaquin] 500 mg PO DAILY #5 tab Pantoprazole [Protonix] 40 mg PO AC-BRKFST #30 tab predniSONE 0 mg PO DIRECTED #60 tab Verapamil Sr [Isoptin Sr] 180 mg PO DAILY #30 tab Apixaban [Eliquis] 2.5 mg PO BID #60 tab Albuterol Nebulized [Ventolin Nebulized] 2.5 mg INHALATION RT-Q6H Discharge Medication List Aspirin 81 mg PO DAILY 04/23/17 [History] Budesonide 0.5 mg INHALATION RT-BID 04/23/17 [History] Montelukast Sodium [Singulair] 10 mg PO HS 04/23/17 [History] Vit C/E/Zn/Coppr/Lutein/Zeaxan [Preservision Areds 2 Softgel] 1 cap PO BID 04/23 [History] Apixaban [Eliquis] 2.5 mg PO BID #60 tab 04/26/17 [Rx] Levofloxacin [Levaquin] 500 mg PO DAILY #5 tab 04/26/17 [Rx] Pantoprazole [Protonix] 40 mg PO AC-BRKFST #30 tab 04/26/17 [Rx] Verapamil Sr [Isoptin Sr] 180 mg PO DAILY #30 tab 04/26/17 [Rx] guaiFENesin [Mucinex] 1,200 mg PO Q12HR #0 tab 04/26/17 [Rx] predniSONE 0 mg PO DIRECTED #60 tab 04/26/17 [Rx] Albuterol Nebulized [Ventolin Nebulized] 2.5 mg INHALATION RT-Q6H 04/29/17 [ History] Atropine Ophth Soln 1% 5Ml [Isopto Atropine 1% 5Ml] 2 drops PO Q4HR PRN #1 bottle 05/01/17 [Rx] Furosemide [Lasix] 20 mg PO DAILY #30 tab 05/01/17 [Rx] LORazepam ORAL CONC [Ativan Intensol] 2 mg PO Q4H PRN #30 ml 05/01/17 [Rx] MORPHINE ORAL SOLN 20mg/mL [Roxanol Oral Soln Conc 20MG/ML] 5 mg PO Q4H PRN #30 ml 05/01/17 [Rx] Follow up Appointment(s)/Referral(s): Pablo Stephen MD [Primary Care Provider] - As Needed Discharge Disposition: [facility]CH [facility]
[2017-05-01 12:55] VITALS: BP 106/57; PULSE 95; RESP 20; TEMP 96.9
[2017-05-02] MEDS ORDERED: LEVOFLOXACIN 750 MG TAB PO SCH (09:00)
== END 2017-05-01 13:22 | disposition hospice, home (50) | DRG 189 ==
LOC: EC 12:46 → 6SEL 15:54
PROVIDERS: ADMIT Internal Medicine Geriatric Medicine; ATTEND Internal Medicine Geriatric Medicine
DX: J96.01 Acute respiratory failure with hypoxia (principal); E43 Unspecified severe protein-calorie malnutrition; J18.9 Pneumonia, unspecified organism; I27.2 Other secondary pulmonary hypertension; I11.0 Hypertensive heart disease with heart failure; J44.0 Chronic obstructive pulmonary disease with (acute) lower respiratory infection; R64 Cachexia; I50.32 Chronic diastolic (congestive) heart failure; J44.1 Chronic obstructive pulmonary disease with (acute) exacerbation; J84.10 Pulmonary fibrosis, unspecified; Z99.81 Dependence on supplemental oxygen; I48.0 Paroxysmal atrial fibrillation; Z66 Do not resuscitate; Z51.5 Encounter for palliative care; N40.0 Benign prostatic hyperplasia without lower urinary tract symptoms; G25.0 Essential tremor; H35.30 Unspecified macular degeneration; H91.90 Unspecified hearing loss, unspecified ear; M19.91 Primary osteoarthritis, unspecified site; Z98.42 Cataract extraction status, left eye; Z98.41 Cataract extraction status, right eye; Z96.1 Presence of intraocular lens; Z87.891 Personal history of nicotine dependence; Z88.8 Allergy status to other drugs, medicaments and biological substances; Z79.01 Long term (current) use of anticoagulants; Z79.82 Long term (current) use of aspirin; Z79.51 Long term (current) use of inhaled steroids; Z79.52 Long term (current) use of systemic steroids; Z79.899 Other long term (current) drug therapy; Z82.49 Family history of ischemic heart disease and other diseases of the circulatory system
CPT/HCPCS: 36415; 71020; 80048; 80053; 80061; 82550; 82553; 83605; 83735; 83880; 84484; 85025; 85027; 85610; 85730; 87040; 93005; 94640; 94667